=== PATIENT | male | born 1970 | race Caucasian/White ===

== ENCOUNTER 2021-07-10 20:42 | Emergency (ER) | payer MEDICARE, MEDICAID ==
[~2021-07-10] VITALS: Ht 185.4 cm; Wt 147.9 kg
[2021-07-10 20:42] VITALS: BP 150/88
== END 2021-07-11 00:13 | disposition left against medical advice (07) ==
LOC: ER 20:42
DX: H92.02 Otalgia, left ear (principal); Z53.21 Procedure and treatment not carried out due to patient leaving prior to being seen by health care provider

== ENCOUNTER → 2022-01-17 | Emergency (ER) | payer MEDICARE, MEDICAID ==
[~2022-01-17] VITALS: Ht 185.4 cm; Wt 145.0 kg
[~2022-01-17] MED LIST: HYDR1TAB97 PO; HYDROcodone-ACET 10/325MG TAB PO ONE; ONDANSETRON ODT 4 MG TAB PO ONE
[2022-01-17 23:18] LABS: Basophils # (auto) 0.1 10 ^3/uL (0-0.2); Basophils % (auto) 0.9 % (0.0-2.0); Eosinophils # (auto) 0.3 10 ^3/uL (0-0.8); Eosinophils % (auto) 2.9 % (0.0-7.0); Lymphocytes # (auto) 2.9 10 ^3/uL (0.4-5.4); Lymphocytes % (auto) 25.9 % (10.0-50.0); Mean Corpuscular Hemoglobin 31.5 pg (28.0-32.0); Mean Corpuscular Hgb Conc. 34.7 g/dL (32.0-36.0); Mean Corpuscular Volume 90.9 fL (80.0-100.0); Monocytes # (auto) 0.8 10 ^3/uL (0-1.3); Monocytes % (auto) 7.6 % (0.0-12.0); Neutrophils # (auto) 6.9 10 ^3/uL (1.6-8.6); Neutrophils % (auto) 62.7 % (37.0-80.0); Nucleated Red Blood Cells % 1.3 %; Red Blood Cells 5.39 10^6/uL (4.5-5.90); Red Cell Distribution Width 13.3 % (11.8-14.3); White Blood Cell 11.1 10^3/uL (4.4-10.8)
[2022-01-17 23:33] LABS: INR 1.03 (0.9-1.15); Partial Thromboplastin Time 28.5 sec (24.6-33.4)
[2022-01-17 23:38] LABS: Potassium 4.3 mmol/L (3.5-5.1)
[2022-01-17 23:40] LABS: Albumin 3.3 g/dL (3.4-5.0); BUN/Creatinine Ratio 15.9; Calcium 9.3 mg/dL (8.5-10.1)
[2022-01-17 23:44] LABS: Bilirubin, Total 0.6 mg/dL (0.2-1.0); Total Protein 8.1 g/dL (6.4-8.2)
[2022-01-18 03:50] VITALS: BP 138/72
== END | disposition home or self-care (01) ==
LOC: ER 21:05
DX: K57.90 Diverticulosis of intestine, part unspecified, without perforation or abscess without bleeding (principal); K40.90 Unilateral inguinal hernia, without obstruction or gangrene, not specified as recurrent; E11.9 Type 2 diabetes mellitus without complications; Z88.1 Allergy status to other antibiotic agents
CPT/HCPCS: 36415; 71045; 71250; 74176; 80053; 83690; 83880; 84484; 85025; 85610; 85730; 93005

== ENCOUNTER 2022-07-30 19:33 | Inpatient (IN) | payer MEDICARE, MEDICAID ==
[~2022-07-30] VITALS: Ht 188 cm; Wt 134.0 kg
[~2022-07-30 19:33] MED LIST changes: +DOCU100C10 PO; +EMPA1TAB3 PO; +ERGO1CAP12 PO; +GABA300C10 PO; -HYDROcodone-ACET 10/325MG TAB PO ONE; +METH500T22 PO; +METO-281 PO; -ONDANSETRON ODT 4 MG TAB PO ONE; +PANT40TA2 PO
[2022-07-30] MEDS ORDERED: PANTOPRAZOLE 40 MG/10 ML VIAL INJ IV ONE (20:30)
[2022-07-30] MEDS ORDERED: PROCHLORPERAZINE EDISYLATE 5 MG/ML 2ML VIAL IV ONE (20:30)
[2022-07-30] MEDS ORDERED: HYDROmorphone HCL 2 MG/ML VL/or syr IV ONE (20:30)
[2022-07-30] MEDS ORDERED: SODIUM CHLORIDE 0.9% 1,000 ML IVB ONE (20:30)
[2022-07-30 20:57] LABS: Urine Bacteria None Seen /hpf (None Seen)
[2022-07-30 21:04] LABS: Basophils # (auto) 0.3 10 ^3/uL (0-0.2); Basophils % (auto) 2.2 % (0.0-2.0); Eosinophils # (auto) 0.1 10 ^3/uL (0-0.8); Hematocrit 49.1 % (41.0-53.0); Hemoglobin 16.7 g/dL (13.5-17.5); Lymphocytes # (auto) 0.9 10 ^3/uL (0.4-5.4); Lymphocytes % (auto) 7.1 % (10.0-50.0); Mean Corpuscular Volume 88.3 fL (80.0-100.0); Monocytes # (auto) 0.2 10 ^3/uL (0-1.3); Monocytes % (auto) 1.9 % (0.0-12.0); Neutrophils # (auto) 10.7 10 ^3/uL (1.6-8.6); Neutrophils % (auto) 87.8 % (37.0-80.0); Nucleated Red Blood Cells % 1.9 %; Red Blood Cells 5.56 10^6/uL (4.5-5.90); Red Cell Distribution Width 13.4 % (11.8-14.3); White Blood Cell 12.2 10^3/uL (4.4-10.8)
[2022-07-30 21:20] LABS: INR 1.06 (0.9-1.15); Partial Thromboplastin Time 28.8 sec (24.6-33.4)
[2022-07-30 21:21] LABS: Urine Blood Negative /uL (Negative); Urine WBC 0-2 /hpf (0 - 3)
[2022-07-30 21:22] LABS: Urine Mucus FEW (None Seen)
[2022-07-30 21:24] LABS: Albumin 3.9 g/dL (3.4-5.0); Calcium 9.2 mg/dL (8.5-10.1); Potassium 3.6 mmol/L (3.5-5.1)
[2022-07-30 21:27] LABS: Bilirubin, Total 0.8 mg/dL (0.2-1.0); Total Protein 8.9 g/dL (6.4-8.2)
[2022-07-30] MEDS ORDERED: SODIUM CHLORIDE 0.9% 1,000 ML IV SCH (22:15)
[2022-07-30] MEDS ORDERED: cefTRIAXone 1GM/50ML D5W 50 ML IV ONE (22:15)
[2022-07-30] MEDS ORDERED: ACETAMINOPHEN 325 MG TAB PO PRN (22:15)
[2022-07-30] MEDS ORDERED: DOCUSATE SOD 100 MG CAP PO PRN (22:15)
[2022-07-30] MEDS ORDERED: DEXTROSE (50%) 50ML SYRG IV PRN (22:15)
[2022-07-30] MEDS ORDERED: hydrALAZINE HCL 20 MG/ML VL IV PRN (22:15)
[2022-07-30] MEDS ORDERED: ONDANSETRON HCL 4 MG/2 ML VIAL IV PRN ×2 (22:15→23:15)
[2022-07-30] MEDS ORDERED: NITROGLYCERIN 0.4 MG SL TAB SL PRN (23:15)
[2022-07-30] MEDS ORDERED: MORPHINE SULFATE INJ 2 MG/ml SYRG IV PRN (23:15)
[2022-07-31] MEDS: HYDROcodone-ACET 5/325MG TAB PO PRN ×3 (00:39→23:26)
[2022-07-31] MEDS: SODIUM CHLORIDE 0.9% 1,000 ML IV SCH ×4 (00:42→23:15)
[2022-07-31 04:55] LABS: Basophils # (auto) 0 10 ^3/uL (0-0.2); Basophils % (auto) 0.2 % (0.0-2.0); Eosinophils # (auto) 0 10 ^3/uL (0-0.8); Hematocrit 44.8 % (41.0-53.0); Hemoglobin 15.4 g/dL (13.5-17.5); Lymphocytes # (auto) 1.5 10 ^3/uL (0.4-5.4); Mean Corpuscular Hemoglobin 30.3 pg (28.0-32.0); Mean Corpuscular Hgb Conc. 34.4 g/dL (32.0-36.0); Mean Corpuscular Volume 88.2 fL (80.0-100.0); Monocytes # (auto) 0.6 10 ^3/uL (0-1.3); Monocytes % (auto) 4.6 % (0.0-12.0); Neutrophils # (auto) 10.4 10 ^3/uL (1.6-8.6); Neutrophils % (auto) 83.2 % (37.0-80.0); Nucleated Red Blood Cells % 0.5 %; Red Blood Cells 5.08 10^6/uL (4.5-5.90); Red Cell Distribution Width 13.3 % (11.8-14.3); White Blood Cell 12.6 10^3/uL (4.4-10.8)
[2022-07-31 04:59] LABS: Calcium 8.5 mg/dL (8.5-10.1); Potassium 3.9 mmol/L (3.5-5.1)
[2022-07-31 05:05] LABS: Albumin 3.3 g/dL (3.4-5.0); BUN/Creatinine Ratio 13.6 (10.0-20.0); Bilirubin, Total 0.5 mg/dL (0.2-1.0); Total Protein 7.8 g/dL (6.4-8.2)
[2022-07-31] MEDS: ACCU-CHEK COMFORT CURVE STRIP VI SCH ×4 (06:51→22:00)
[2022-07-31] MEDS: InsuLIN REG 1unit/0.01ml Soln (100units/ml) SC SCH ×3 (06:51→16:51)
[2022-07-31] MEDS ORDERED: ONDANSETRON HCL 4 MG/2 ML VIAL IV PRN (07:00)
[2022-07-31] MEDS: cefTRIAXone 1GM/50ML D5W 50 ML IV SCH (09:11)
[2022-07-31] MEDS: PANTOPRAZOLE 40 MG/10 ML VIAL INJ IV SCH (09:35)
[2022-07-31] MEDS: ENOXAPARIN SOD 40 MG/0.4 ML SYRINGE SC SCH (09:35)
[2022-07-31] MEDS: METOCLOPRAMIDE HCL 5MG/ml INJ 2ml VIAL IV SCH ×2 (12:12→18:13)
[2022-07-31] MEDS: MORPHINE SULFATE INJ 2 MG/ml SYRG IV PRN (15:55)
[2022-07-31] MEDS ORDERED: InsuLIN REG 1unit/0.01ml Soln (100units/ml) SC SCH (22:00)
[2022-08-01] MEDS: METOCLOPRAMIDE HCL 5MG/ml INJ 2ml VIAL IV SCH ×3 (01:36→12:00)
[2022-08-01 01:40] VITALS: BP 125/79
[2022-08-01] MEDS ORDERED: SENN17.23 PO (01:48)
[2022-08-01] MEDS: MORPHINE SULFATE INJ 2 MG/ml SYRG IV PRN (02:01)
[2022-08-01 04:48] VITALS: BP 122/72
[2022-08-01] MEDS: InsuLIN REG 1unit/0.01ml Soln (100units/ml) SC SCH ×2 (06:13→11:30)
[2022-08-01] MEDS: ACCU-CHEK COMFORT CURVE STRIP VI SCH ×2 (06:13→11:30)
[2022-08-01] MEDS: SODIUM CHLORIDE 0.9% 1,000 ML IV SCH (07:22)
[2022-08-01 08:00] VITALS: BP 120/75
[2022-08-01] MEDS: cefTRIAXone 1GM/50ML D5W 50 ML IV SCH (08:22)
[2022-08-01] MEDS: ENOXAPARIN SOD 40 MG/0.4 ML SYRINGE SC SCH (08:28)
[2022-08-01] MEDS: PANTOPRAZOLE 40 MG/10 ML VIAL INJ IV SCH (08:28)
[2022-08-01 09:00] VITALS: BP 120/75
[2022-08-01 12:07] VITALS: BP 120/75
[2022-08-01 13:00] VITALS: BP 116/69
== END 2022-08-01 14:00 | disposition home or self-care (01) | DRG 392 ==
LOC: ER 19:33 → TELE 23:24 → TELE-EAST 23:50 → TELE 07-31 23:45 → TELE-EAST 07-31 23:49
PROVIDERS: ADMIT Internal Medicine; ATTEND Internal Medicine
DX: R11.2 Nausea with vomiting, unspecified (principal); E87.1 Hypo-osmolality and hyponatremia; K57.32 Diverticulitis of large intestine without perforation or abscess without bleeding; K80.20 Calculus of gallbladder without cholecystitis without obstruction; E66.01 Morbid (severe) obesity due to excess calories; E11.65 Type 2 diabetes mellitus with hyperglycemia; F12.10 Cannabis abuse, uncomplicated; F41.9 Anxiety disorder, unspecified; K21.9 Gastro-esophageal reflux disease without esophagitis; Z68.37 Body mass index [BMI] 37.0-37.9, adult; Z80.3 Family history of malignant neoplasm of breast; Z79.899 Other long term (current) drug therapy; Z88.1 Allergy status to other antibiotic agents
CPT/HCPCS: 36415; 71045; 74176; 80053; 81001; 82962; 83036; 83690; 83880; 84484; 85025; 85610; 85730; 93005; 96374; 96375; C9113; G0378; J0696; J1815; J2405

== ENCOUNTER 2023-08-31 15:05 | Inpatient (IN) | payer MEDICARE, MEDICAID ==
[~2023-08-31] VITALS: Ht 185.4 cm; Wt 141.9 kg
[~2023-08-31 15:05] MED LIST changes: -DOCU100C10 PO; +GABA-1250 PO; -GABA300C10 PO; -METH500T22 PO; +SENN17.23 PO
[2023-08-31 15:55] VITALS: PULSE 82; RESP 13; O2SAT 96
[2023-08-31] MEDS: SODIUM CHLORIDE 0.9% 1,000 ML IV ONE (16:04)
[2023-08-31 16:50] LABS: Basophils # (auto) 0.1 10 ^3/uL (0-0.2); Basophils % (auto) 0.3 % (0.0-2.0); Eosinophils # (auto) 0 10 ^3/uL (0-0.8); Hemoglobin 19.7 g/dL (13.5-17.5); Monocytes # (auto) 0.4 10 ^3/uL (0-1.3); Neutrophils % (auto) 91.8 % (37.0-80.0)
[2023-08-31 16:52] LABS: Eosinophils % (auto) 0.1 % (0.0-7.0); Lymphocytes % (auto) 5.7 % (10.0-50.0); Mean Corpuscular Hgb Conc. 33.9 g/dL (32.0-36.0); Mean Corpuscular Volume 91.7 fL (80.0-100.0); Monocytes % (auto) 2.1 % (0.0-12.0); Neutrophils # (auto) 16.8 10 ^3/uL (1.6-8.6); Nucleated Red Blood Cells % 0.7 %; Red Blood Cells 6.35 10^6/uL (4.5-5.90); Red Cell Distribution Width 15.1 % (11.8-14.3); White Blood Cell 18.3 10^3/uL (4.4-10.8)
[2023-08-31 16:54] LABS: Hematocrit 58.2 % (41.0-53.0)
[2023-08-31] MEDS: PIPERACILLIN-TAZOB 3.375GM 100 ML IV ONE (17:00)
[2023-08-31] MEDS: ONDANSETRON HCL 4 MG/2 ML VIAL IV ONE ×2 (17:01→21:27)
[2023-08-31] MEDS: MORPHINE SULFATE 4 MG/ML SYR/VIAL IV ONE ×2 (17:02→21:40)
[2023-08-31 17:05] LABS: Anion Gap 10 (5-15); Carbon Dioxide 23 mmol/L (20-30); Chloride 104 mmol/L (98-107); Potassium 4.2 mmol/L (3.5-5.1); Sodium 137 mmol/L (136-145)
[2023-08-31 17:06] LABS: Calcium 10.9 mg/dL (8.5-10.1)
[2023-08-31 17:11] LABS: BUN/Creatinine Ratio 19.8 (10.0-20.0); Blood Urea Nitrogen 19 mg/dL (9-23); Glucose 270 mg/dL (74-106)
[2023-08-31 18:02] LABS: Lactic Acid w/Reflex 2.8 mmol/L (0.4-2.0)
[2023-08-31 19:30] VITALS: PULSE 90; RESP 18; O2SAT 95
[2023-08-31] MEDS ORDERED: ACETAMINOPHEN 325 MG TAB PO PRN (22:45)
[2023-08-31] MEDS ORDERED: NITROGLYCERIN 0.4 MG SL TAB SL PRN (22:45)
[2023-08-31] MEDS ORDERED: MORPHINE SULFATE INJ 2 MG/ml SYRG IV PRN (22:45)
[2023-08-31] MEDS: SODIUM CHLORIDE 0.9% 1,000 ML IV SCH (23:53)
[2023-09-01] VITALS (8 sets, daily range): BP systolic 113–154; BP diastolic 64–96; PULSE 66–100; RESP 17–20; TEMP 97.8–98.4; O2SAT 95–98
[2023-09-01] MEDS ORDERED: MAGN84TA4 PO (01:26)
[2023-09-01] MEDS ORDERED: ATOR20TA PO (01:26)
[2023-09-01] MEDS ORDERED: CYA100I IM (01:26)
[2023-09-01] MEDS: ONDANSETRON HCL 4 MG/2 ML VIAL IV PRN (02:34)
[2023-09-01] MEDS: MORPHINE SULFATE INJ 2 MG/ml SYRG IV PRN (02:34)
[2023-09-01 04:33] LABS: Basophils # (auto) 0.1 10 ^3/uL (0-0.2); Eosinophils # (auto) 0 10 ^3/uL (0-0.8); Lymphocytes # (auto) 1.4 10 ^3/uL (0.4-5.4); Mean Corpuscular Hgb Conc. 33.8 g/dL (32.0-36.0); Monocytes # (auto) 0.8 10 ^3/uL (0-1.3); Neutrophils # (auto) 14.8 10 ^3/uL (1.6-8.6); Nucleated Red Blood Cells % 0.1 %; Red Cell Distribution Width 15.3 % (11.8-14.3)
[2023-09-01 04:35] LABS: Basophils % (auto) 0.4 % (0.0-2.0); Hematocrit 53.1 % (41.0-53.0); Hemoglobin 17.9 g/dL (13.5-17.5); Lymphocytes % (auto) 8.4 % (10.0-50.0); Mean Corpuscular Volume 91.6 fL (80.0-100.0); Monocytes % (auto) 4.9 % (0.0-12.0); Neutrophils % (auto) 86.3 % (37.0-80.0); Red Blood Cells 5.79 10^6/uL (4.5-5.90); White Blood Cell 17.1 10^3/uL (4.4-10.8)
[2023-09-01 04:50] LABS: Alanine Aminotransferase 27 U/L (7-40); Albumin 4.4 g/dL (3.2-4.8); Alkaline Phosphatase 53 U/L (46-116); Anion Gap 11 (5-15); Aspartate Aminotransferase < 8 U/L (13-40); BUN/Creatinine Ratio 17.2 (10.0-20.0); Bilirubin, Total 0.6 mg/dL (0.2-1.0); Blood Urea Nitrogen 16 mg/dL (9-23); Calcium 9.7 mg/dL (8.7-10.4); Carbon Dioxide 23 mmol/L (20-30); Chloride 105 mmol/L (98-107); Glucose 213 mg/dL (74-106); Potassium 4.3 mmol/L (3.5-5.1); Sodium 139 mmol/L (136-145)
[2023-09-01] MEDS: ZINC SULFATE 220mg CAP or TAB PO SCH (09:27)
[2023-09-01] MEDS: ASCORBIC ACID 500 MG TAB PO SCH (09:27)
[2023-09-01] MEDS: MULTIPLE VITAMIN TAB PO SCH (09:27)
[2023-09-01 10:07] LABS: Hepatitis B Surface Antigen Negative (Negative)
[2023-09-01 10:28] LABS: Hepatitis C Antibody Negative (Negative)
[2023-09-01] MEDS: metroNIDAZOLE 500MG/100ML 100 ML IV SCH (14:00)
[2023-09-01 15:35] LABS: Lactic Acid w/Reflex 2.7 mmol/L (0.4-2.0)
[2023-09-01 19:32] LABS: Urine Bacteria None Seen /hpf (None Seen)
[2023-09-01 19:59] LABS: Urine Blood Negative /uL (Negative); Urine Clarity Clear (Clear); Urine Color Yellow (Yellow); Urine Mucus FEW (None Seen); Urine Protein, UAD TRACE (Negative); Urine Specific Gravity 1.043 (1.001-1.035); Urine Urobilinogen Normal (Negative); Urine WBC 5 /hpf (0 - 3); Urine pH 5.5 (5.0-9.0)
[2023-09-01 20:06] LABS: Amphetamine Screen, Urine Neg (NEGATIVE)
[2023-09-01 20:07] LABS: Barbiturate Scree,Urine Neg (NEGATIVE); Benzodiazephine Screen, Urine Neg (NEGATIVE); Cocaine Screen, Urine Neg (NEGATIVE); Opiate Scree,Urine Neg (NEGATIVE)
[2023-09-01 20:08] LABS: Cannabinoid Screen, Urine Pos (NEGATIVE); Phencyclidine Screen, Urine Neg (NEGATIVE)
[2023-09-01] MEDS: HYDROcodone-ACET 5/325MG TAB PO PRN (21:34)
[2023-09-02 05:00] VITALS: BP 118/79; PULSE 69; RESP 20; TEMP 97.5; O2SAT 97
[2023-09-02 08:00] VITALS: PULSE 66; O2SAT 97
[2023-09-02 09:00] VITALS: BP 120/78; PULSE 105; RESP 18; TEMP 98.9; O2SAT 95
[2023-09-02] MEDS: cefTRIAXone 1GM/50ML D5W 50 ML IV SCH (09:07)
[2023-09-02 13:00] VITALS: BP 127/74; PULSE 100; RESP 18; TEMP 98.2; O2SAT 94
[2023-09-02 15:24] LABS: Alanine Aminotransferase 23 U/L (7-40); Albumin 3.9 g/dL (3.2-4.8); Alkaline Phosphatase 48 U/L (46-116); Anion Gap 6 (5-15); Aspartate Aminotransferase 13 U/L (13-40); BUN/Creatinine Ratio 12.3 (10.0-20.0); Bilirubin, Total 0.5 mg/dL (0.2-1.0); Blood Urea Nitrogen 9 mg/dL (9-23); Carbon Dioxide 23 mmol/L (20-30); Chloride 104 mmol/L (98-107); Glucose 174 mg/dL (74-106); Potassium 4.1 mmol/L (3.5-5.1); Total Protein 7.1 g/dL (5.7-8.2)
[2023-09-02 15:29] LABS: Sodium 133 mmol/L (136-145)
[2023-09-02 15:41] LABS: Basophils # (auto) 0.1 10 ^3/uL (0-0.2); Basophils % (auto) 0.9 % (0.0-2.0); Eosinophils # (auto) 0.4 10 ^3/uL (0-0.8); Eosinophils % (auto) 2.8 % (0.0-7.0); Hematocrit 49.7 % (41.0-53.0); Hemoglobin 16.8 g/dL (13.5-17.5); Lymphocytes # (auto) 2.9 10 ^3/uL (0.4-5.4); Lymphocytes % (auto) 23.1 % (10.0-50.0); Mean Corpuscular Hemoglobin 31.2 pg (28.0-32.0); Mean Corpuscular Hgb Conc. 33.8 g/dL (32.0-36.0); Mean Corpuscular Volume 92.3 fL (80.0-100.0); Monocytes # (auto) 0.9 10 ^3/uL (0-1.3); Monocytes % (auto) 7.5 % (0.0-12.0); Neutrophils # (auto) 8.3 10 ^3/uL (1.6-8.6); Neutrophils % (auto) 65.7 % (37.0-80.0); Nucleated Red Blood Cells % 0.3 %; Red Blood Cells 5.38 10^6/uL (4.5-5.90); Red Cell Distribution Width 14.9 % (11.8-14.3); White Blood Cell 12.6 10^3/uL (4.4-10.8)
[2023-09-02 16:55] VITALS: BP 130/85; PULSE 62; RESP 18; TEMP 97.9; O2SAT 96
[2023-09-02 20:00] VITALS: PULSE 63; O2SAT 98
[2023-09-03 01:10] VITALS: BP 137/91; PULSE 62; RESP 19; TEMP 98.1; O2SAT 96
[2023-09-03 01:27] VITALS: BP 140/88; PULSE 54; RESP 20; TEMP 98; O2SAT 96
[2023-09-03 04:34] VITALS: BP 134/82; PULSE 58; RESP 16; TEMP 98; O2SAT 99
[2023-09-03 06:57] LABS: Basophils # (auto) 0.1 10 ^3/uL (0-0.2); Basophils % (auto) 0.5 % (0.0-2.0); Eosinophils # (auto) 0.2 10 ^3/uL (0-0.8); Eosinophils % (auto) 2.4 % (0.0-7.0); Hematocrit 49.3 % (41.0-53.0); Hemoglobin 17.1 g/dL (13.5-17.5); Lymphocytes # (auto) 2.7 10 ^3/uL (0.4-5.4); Lymphocytes % (auto) 26.9 % (10.0-50.0); Mean Corpuscular Hemoglobin 31.9 pg (28.0-32.0); Mean Corpuscular Hgb Conc. 34.7 g/dL (32.0-36.0); Mean Corpuscular Volume 92.2 fL (80.0-100.0); Monocytes # (auto) 0.9 10 ^3/uL (0-1.3); Monocytes % (auto) 9.3 % (0.0-12.0); Neutrophils # (auto) 6.1 10 ^3/uL (1.6-8.6); Neutrophils % (auto) 60.9 % (37.0-80.0); Nucleated Red Blood Cells % 0.2 %; Red Blood Cells 5.34 10^6/uL (4.5-5.90); Red Cell Distribution Width 14.8 % (11.8-14.3); White Blood Cell 10.1 10^3/uL (4.4-10.8)
[2023-09-03 07:38] LABS: Alanine Aminotransferase 21 U/L (7-40); Albumin 3.9 g/dL (3.2-4.8); Alkaline Phosphatase 48 U/L (46-116); Anion Gap 3 (5-15); Aspartate Aminotransferase 10 U/L (13-40); BUN/Creatinine Ratio 9.9 (10.0-20.0); Bilirubin, Total 0.8 mg/dL (0.2-1.0); Blood Urea Nitrogen 8 mg/dL (9-23); Calcium 9.4 mg/dL (8.7-10.4); Carbon Dioxide 30 mmol/L (20-30); Chloride 105 mmol/L (98-107); Glucose 114 mg/dL (74-106); Potassium 4.3 mmol/L (3.5-5.1); Sodium 138 mmol/L (136-145)
[2023-09-03 07:39] LABS: Total Protein 7.1 g/dL (5.7-8.2)
[2023-09-03 08:00] VITALS: PULSE 56
[2023-09-03] MEDS ORDERED: DEXTROSE (50%) 50ML SYRG IV PRN (09:00)
[2023-09-03 10:38] VITALS: BP 141/87; PULSE 59; RESP 17; TEMP 98.8; O2SAT 97
[2023-09-03] MEDS: ACCU-CHEK COMFORT CURVE STRIP VI SCH (11:30)
[2023-09-03] MEDS: InsuLIN REG 1unit/0.01ml Soln (100units/ml) SC SCH (11:30)
[2023-09-03] MEDS ORDERED: METO-281 PO (12:38)
[2023-09-03 13:17] VITALS: BP 149/90; PULSE 59; RESP 18; TEMP 97.6; O2SAT 97
== END 2023-09-03 15:45 | disposition home or self-care (01) | DRG 392 ==
LOC: ER 15:05 → TELE 22:34 → TELE-WESTW 09-01 00:40
PROVIDERS: ADMIT Internal Medicine; ATTEND Internal Medicine
DX: K52.9 Noninfective gastroenteritis and colitis, unspecified (principal); E87.20 Acidosis, unspecified; E87.1 Hypo-osmolality and hyponatremia; Z68.41 Body mass index [BMI] 40.0-44.9, adult; E66.01 Morbid (severe) obesity due to excess calories; E11.65 Type 2 diabetes mellitus with hyperglycemia; K21.9 Gastro-esophageal reflux disease without esophagitis; I10 Essential (primary) hypertension; F12.10 Cannabis abuse, uncomplicated; Z88.1 Allergy status to other antibiotic agents; Z87.891 Personal history of nicotine dependence; Z90.49 Acquired absence of other specified parts of digestive tract; Z79.4 Long term (current) use of insulin; Z79.899 Other long term (current) drug therapy
CPT/HCPCS: 36415; 71046; 74176; 80048; 80053; 80307; 81001; 82962; 83605; 84484; 85025; 86803; 87040; 87086; 87088; 87340; 96361; 96365; 96366; 96375; 96376; G0378; J1815; J2405; J2543

== ENCOUNTER 2024-05-03 10:09 | Inpatient (IN) | payer MEDICARE, MEDICAID ==
[~2024-05-03] VITALS: Ht 185.4 cm; Wt 137.8 kg
[2024-05-03 01:12] VITALS: BP 152/94; PULSE 88; RESP 17; TEMP 98.2; O2SAT 96
[~2024-05-03 10:09] MED LIST changes: +ATOR20TA PO; +CYA100I IM; +MAGN84TA4 PO
--- NOTE | 2024-05-03 10:23 | ED.PDOC ---
GI ASSESSMENT HPI Comments This is a 53-year-old male who comes in with chief complaint of abdominal pain as well as vomiting. The patient has a history of gastroparesis as well as marijuana use. The patient states that his pain is diffuse and an 8/10. EN route, the patient was an Accu-Chek of 225. He does have a history of diabetes. Upon arrival, the patient was still complaining of pain and feels very weak. Chief Complaint: Nausea/Vomiting Time Seen by MD: 10:19 Primary Care Provider: Unknown Reviewed Notes: Nurses Notes, Medications, Allergies (Allergies to Cipro) Allergies: Coded Allergies: Ciprofloxacin (Verified Allergy, Unknown, 07/10/21) Home Meds Active Scripts Metoclopramide Hcl (Reglan) 10 Mg Tab, 10 MG PO TID for 30 Days, #90 TAB Prov:[facility] 09/03/23 Pantoprazole Sodium Sesquihydr (Protonix) 40 Mg Tab, 40 MG PO DAILY for 30 Days, #30 TAB Prov:[facility]ACE [facility] 06/06/22 Metoclopramide Hcl (Reglan) 10 Mg Tab, 10 MG PO TID PRN for 30 Days, #90 TAB Prov:GRACE [facility]EV[facility] 06/06/22 Pantoprazole Sodium Sesquihydr (Protonix) 40 Mg Tab, 40 MG PO DAILY for 30 Days, #30 TAB Prov:[facility] 06/06/22 Hydrocodone-Acetaminophen (Hydrocodone/Acetaminophen 5-325 mg) 1 Tab Tab, 1 TAB PO QIDPRN, #20 TAB Prov:CHEIKH SCALES MD 01/17/22 Reported Medications Vitamin B12 (Vitamin B-12) 1,000 Mcg/1 Ml Ij, 1000 MCG IM, INJ 09/01/23 Magnesium Lactate (Mag-Tab Sr) 84 Mg Tab, 84 MG PO, TAB 09/01/23 Atorvastatin Calcium (Lipitor) 20 Mg Tab, 20 MG PO, TAB 09/01/23 Senna (Senokot Extra Strength) 17.2 Mg Tab, PO 08/01/22 Gabapentin (Gabapentin) 300 Mg Cap, 1 CAP PO DAILY 06/04/22 Empagliflozin (Jardiance) 25 Mg Tab, 0.5 TAB PO DAILY 06/04/22 Ergocalciferol (Vitamin D) 50,000 Unit Cap, 1 CAP PO QWEEKLY 06/04/22 Information Source: Patient Mode of Arrival: Wheelchair Timing: Hours Duration: Since onset Prehospital treatment: None Quality: Aching, Cramping Vomitus: Bilious Stool: Normal Severity: Severe Recent: None Recent Hx of: Diabetes, Other (History of marijuana use) Pain Location: Diffuse Modifying Factors: Nothing Associated sign and symptoms: Nausea, Vomiting, Abdominal Pain Past Medical History PAST MEDICAL HISTORY: CVA, DM, GERD, High Lipids, HTN Past Medical History (Other): Sleep apnea Surgical History: Unknown Family History Family History: Reviewed,noncontributory to illness Social History Smoker: Non-Smoker Alcohol: Denies ETOH Use Drugs: Marijuana Lives In: Home Constitutional: denies: chills, diaphoresis, fatigue, fever, malaise, sweats, weakness, others EENTM: denies: blurred vision, double vision, ear bleeding, ear discharge, ear drainage, ear pain, ear ringing, eye pain, eye redness, hearing loss, mouth pain, mouth swelling, nasal discharge, nose bleeding, nose congestion, nose pain, photophobia, tearing, throat pain, throat swelling, voice changes, others Respiratory: denies: cough, hemoptysis, orthopnea, SOB at rest, shortness of breath, SOB with excertion, stridor, wheezing, others Cardiovascular: denies: chest pain, dizzy spells, diaphoresis, Dyspnea on exertion, edema, irregular heart beat, left arm pain, lightheadedness, palpitations, PND, syncope, others Gastrointestinal: reports: abdominal pain, nausea, vomiting; denies: abdomen distended, blood streaked bowels, constipated, diarrhea, dysphagia, difficulty swallowing, hematemesis, melena, poor appetite, poor fluid intake, rectal bleeding, rectal pain, others Genitourinary: denies: burning, dysuria, flank pain, frequency, hematuria, incontinence, penile discharge, penile sore, pain, testicle pain, testicle swelling, urgency, others Neurological: denies: dizziness, fainting, headache, left sided numbness, left sided weakness, numbness, paresthesia, pre-existing deficit, right sided numbness, right sided weakness, seizure, speech problems, tingling, tremors, weakness, others Musculoskeletal: denies: back pain, gout, joint pain, joint swelling, muscle pain, muscle stiffness, neck pain, others Integumetry: denies: bruises, change in color, change in hair/nails, dryness, laceration, lesions, lumps, rash, wounds, others Allergic/Immunocompromised: denies: Difficulty Healing, Frequent Infections, Hives, Itching, others Hematologic/Lymphatic: denies: anemia, blood clots, easy bleeding, easy b ruising, swollen glands, others Endocrine: denies: excessive hunger, excessive sweating, excessive thirst, excessive urination, flushing, intolerance to cold, intolerance to heat, unexplained weight gain, unexplained weight loss, others Psychiatric: denies: anxiety, bipolar disorder, depression, hopeless, panic disorder, schizophrenia, sleepless, suicidal, others Physical Exam General Appearance: Moderate Distress HEENT: Normal ENT Inspection, Pharynx Normal, TMs Normal Neck: Full Range of Motion, Non-Tender, Normal, Normal Inspection Respiratory: Chest Non-Tender, Lungs Clear, No Accessory Muscle Use, No Respiratory Distress, Normal Breath Sounds Cardiovascular: No Edema, No JVD, No Murmur, No Gallop, Normal Peripheral Pulses, Regular Rate/Rhythm Breast Exam: Deferred Gastrointestinal: Diffuse, No Organomegaly, No Pulsatile Mass, Normal Bowel Sounds, Soft, Tenderness Genitalia: Deferred Pelvic: Deferred Rectal: Deferred Extremities: No calf tenderness, Normal capillary refill, Normal inspection, Normal range of motion, Non-tender, No pedal edema Musculoskeletal : Apperance: Normal Neurologic: Alert, 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 Was a procedure done?: No GI differential Dx Differential Diagnosis: Constipation, Diverticular disease, Gastritis/PUD, Gastroenteritis, Pancreatitis, UTI, Electrolyte Imbalance, Food Poisoning X-Ray, Labs, Meds, VS Vital Signs Date Time Temp Pulse Resp B/P (MAP) Pulse Ox O2 Delivery O2 Flow Rate FiO2 05/03/24 12:34 76 15 159/101 05/03/24 11:18 88 16 158/91 05/03/24 11:00 Nasal Cannula* 3 32 05/03/24 10:21 97.4 83 20 147/95 (112) 93 Lab Test 05/03/24 11:36 05/03/24 10:18 Range/Units White Blood Count 15.2 H 4.4-10.8 10^3/uL Red Blood Count 5.85 4.5-5.90 10^6/uL Hemoglobin 18.4 H 13.5-17.5 g/dL Hematocrit 54.4 H 41.0-53.0 % Mean Corpuscular Volume 93.0 80.0-100.0 fL Mean Corpuscular Hemoglobin 31.4 28.0-32.0 pg Mean Corpuscular Hemoglobin Concent 33.8 32.0-36.0 g/dL Red Cell Distribution Width 13.6 11.8-14.3 % Platelet Count 252 140-450 10^3/uL Mean Platelet Volume 10.1 6.9-10.8 fL Neutrophils (%) (Auto) 88.3 H 37.0-80.0 % Lymphocytes (%) (Auto) 8.5 L 10.0-50.0 % Monocytes (%) (Auto) 2.8 0.0-12.0 % Eosinophils (%) (Auto) 0.1 0.0-7.0 % Basophils (%) (Auto) 0.3 0.0-2.0 % Neutrophils # (Auto) 13.4 H 1.6-8.6 10 ^3/uL Lymphocytes # (Auto) 1.3 0.4-5.4 10 ^3/uL Monocytes # (Auto) 0.4 0-1.3 10 ^3/uL Eosinophils # (Auto) 0 0-0.8 10 ^3/uL Basophils # (Auto) 0 0-0.2 10 ^3/uL Nucleated Red Blood Cells 0.4 % Sodium Level 139 136-145 mmol/L Potassium Level 4.0 3.5-5.1 mmol/L Chloride Level 106 98-107 mmol/L Carbon Dioxide Level 16 L 20-31 mmol/L Anion Gap 17 H 5-15 Blood Urea Nitrogen 12 9-23 mg/dL Creatinine 0.84 0.700-1.30 mg/dL Glomerular Filtration Rate Calc 104 >90 mL/min BUN/Creatinine Ratio 14.3 10.0-20.0 Serum Glucose 209 H 74-106 mg/dL Calcium Level 10.7 H 8.7-10.4 mg/dL Total Bilirubin 1.1 H 0.2-1.0 mg/dL Aspartate Amino Transferase (AST) 20 13-40 U/L Alanine Aminotransferase (ALT) 38 7-40 U/L Alkaline Phosphatase 57 46-116 U/L Total Protein 8.6 H 5.7-8.2 g/dL Albumin 5.2 H 3.2-4.8 g/dL Lipase 45 12-53 U/L Beta-Hydroxybutyric Acid 3.356 H < 0.4 mmol/L POC Glucose 235 H 70-106 mg/dl Current Medications Medications (Trade) Dose Ordered Sig/Tang Route Start Time Stop Time Status Last Admin Sodium Chloride 1,000 ml @ 1,000 mls/hr Q1H ONCE IVB 05/03/24 10:30 05/03/24 11:29 DC 05/03/24 10:30 Prochlorperazine Edisylate (Compazine Inj) 10 mg ONCE ONCE IV 05/03/24 10:30 05/03/24 10:31 DC 05/03/24 11:18 Pantoprazole Sodium (Protonix) 40 mg ONCE ONCE IV 05/03/24 10:30 05/03/24 10:31 DC 05/03/24 11:17 Morphine Sulfate 4 mg ONCE ONCE IV 05/03/24 10:30 05/03/24 10:31 DC 05/03/24 11:18 Images Reviewed?: Images reviewed and evaluated by me Time of 1ST Reevaluation: 10:27 Reevaluation 1ST: Unchanged Patient Education/Counseling: Diagnosis, Treatment, Prognosis Family Education/Counseling: No Family Present Departure 1 Departure Time of Disposition: 13:25 Impression: Primary Impression: Cannabis hyperemesis syndrome concurrent with and due to cannabis abuse Additional Impressions: Increased anion gap metabolic acidosis Dehydration Diabetes type 1, uncontrolled Qualified Codes: E10.65 - Type 1 diabetes mellitus with hyperglycemia Disposition: ADMITTED INPATIENT Admit to: Tele Condition: Fair Critical Care Note Critical Care Time?: No Stability Stability form required: Yes Unstable for transfer: Telemetry monitoring (Telemetry monitoring required), ED Physician Assesment (Clinical assesment) Heart Score Heart Score: Heart Score Response (Comments) Value History N/A 0 EKG N/A 0 Age N/A 0 Risk Factors N/A 0 Troponin N/A 0 Total 0 ROBSON ALMONTE MD May 03, 2024 10:23
[2024-05-03] MEDS: SODIUM CHLORIDE 0.9% 1,000 ML IVB ONE (10:30)
--- NOTE | 2024-05-03 11:13 | DVH ---
CT ABDOMEN AND PELVIS WITHOUT CONTRAST CLINICAL HISTORY: PAIN TECHNIQUE: Multiple contiguous axial images of the abdomen and pelvis without intravenous contrast. The images were reformatted degenerate coronal and sagittal reconstructions. All CT scans at this medical facility are performed using dose modulation techniques as appropriate t o a performed exam including the following:Automated exposure control was utilized; adjustment of the MA and/or KV according to patient size; and use of iterative reconstruction technique. Radiation Dose Information: CT Dose: CTDI volume is 27.64 mGy. Dose-length product is 1630.32 mGy*cm Comparison: CT CT AB PEL WO CON-NO ORAL OR IV on DOS: 08/31/23, CT CT AB PEL WO CON-NO ORAL OR IV on D OS: 07/30/22 FINDINGS: Evaluation of the abdomen and pelvis is limited without intravenous contrast. There is a tiny calcified gallstone in the gallbladder. The liver, pancreas, kidneys, adrenal glan ds, and spleen appear within normal limits. There is no gross evidence of abdominal lymphadenopathy. There is no free fluid or free air. The stomach grossly appears unremarkable. The small and large bowel loops demonstrate normal caliber . There are anastomotic sutures in the sigmoid colon. There are scattered diverticula in the distal c olon without evidence of acute diverticulitis. A normal-appearing appendix is seen in the right lower quadrant abdomen. The abdominal aorta and IVC appear within normal limits. The bladder appears unremarkable for the degree of distention. Pelvic organ appears within normal mckee its. There is no gross evidence of a pelvic mass. There is no free fluid collection. Lung bases are clear. There is no acute osseous abnormality. IMPRESSION: 1. There is no acute process in the abdomen and pelvis. 2. Tiny calcified gallstone in the gallbladder. 3. Postsurgical changes in the sigmoid colon. 4. Distal colon diverticulosis. HS:Y
[2024-05-03] MEDS: PANTOPRAZOLE 40 MG/10 ML VIAL INJ IV ONE (11:17)
[2024-05-03] MEDS: MORPHINE SULFATE 4 MG/ML SYR/VIAL IV ONE (11:18)
[2024-05-03] MEDS: PROCHLORPERAZINE EDISYLATE 5 MG/ML 2ML VIAL IV ONE (11:18)
[2024-05-03 12:28] LABS: Basophils # (auto) 0 10 ^3/uL (0-0.2); Basophils % (auto) 0.3 % (0.0-2.0); Eosinophils # (auto) 0 10 ^3/uL (0-0.8); Eosinophils % (auto) 0.1 % (0.0-7.0); Hematocrit 54.4 % (41.0-53.0); Hemoglobin 18.4 g/dL (13.5-17.5); Lymphocytes # (auto) 1.3 10 ^3/uL (0.4-5.4); Lymphocytes % (auto) 8.5 % (10.0-50.0); Mean Corpuscular Hemoglobin 31.4 pg (28.0-32.0); Mean Corpuscular Hgb Conc. 33.8 g/dL (32.0-36.0); Monocytes # (auto) 0.4 10 ^3/uL (0-1.3); Monocytes % (auto) 2.8 % (0.0-12.0); Neutrophils # (auto) 13.4 10 ^3/uL (1.6-8.6); Neutrophils % (auto) 88.3 % (37.0-80.0); Nucleated Red Blood Cells % 0.4 %; Platelet Count (auto) 252 10^3/uL (140-450); Red Blood Cells 5.85 10^6/uL (4.5-5.90); Red Cell Distribution Width 13.6 % (11.8-14.3); White Blood Cell 15.2 10^3/uL (4.4-10.8)
[2024-05-03 12:40] LABS: Alanine Aminotransferase 38 U/L (7-40); Alkaline Phosphatase 57 U/L (46-116); Anion Gap 17 (5-15); BUN/Creatinine Ratio 14.3 (10.0-20.0); Blood Urea Nitrogen 12 mg/dL (9-23); Chloride 106 mmol/L (98-107); Lipase 45 U/L (12-53); Sodium 139 mmol/L (136-145)
[2024-05-03 12:41] LABS: Aspartate Aminotransferase 20 U/L (13-40); Bilirubin, Total 1.1 mg/dL (0.2-1.0)
[2024-05-03 12:42] LABS: Albumin 5.2 g/dL (3.2-4.8); Calcium 10.7 mg/dL (8.7-10.4); Carbon Dioxide 16 mmol/L (20-31); Glucose 209 mg/dL (74-106); Total Protein 8.6 g/dL (5.7-8.2)
--- NOTE | 2024-05-03 13:37 | DVHHP2 ---
History of Present Illness Home Meds Active Scripts Metoclopramide Hcl (Reglan) 10 Mg Tab, 10 MG PO TID for 30 Days, #90 TAB Prov:[facility] 09/03/23 Pantoprazole Sodium Sesquihydr (Protonix) 40 Mg Tab, 40 MG PO DAILY for 30 Days, #30 TAB Prov:TAWANA VERNON [facility] 06/06/22 Metoclopramide Hcl (Reglan) 10 Mg Tab, 10 MG PO TID PRN for 30 Days, #90 TAB Prov:GRACE STEVENSON [facility] 06/06/22 Pantoprazole Sodium Sesquihydr (Protonix) 40 Mg Tab, 40 MG PO DAILY for 30 Days, #30 TAB Prov:TAWANA VERNON EDDIE [facility] 06/06/22 Hydrocodone-Acetaminophen (Hydrocodone/Acetaminophen 5-325 mg) 1 Tab Tab, 1 TAB PO QIDPRN, #20 TAB Prov:CHEIKH SCALES MD 01/17/22 Reported Medications Vitamin B12 (Vitamin B-12) 1,000 Mcg/1 Ml Ij, 1000 MCG IM, INJ 09/01/23 Magnesium Lactate (Mag-Tab Sr) 84 Mg Tab, 84 MG PO, TAB 09/01/23 Atorvastatin Calcium (Lipitor) 20 Mg Tab, 20 MG PO, TAB 09/01/23 Senna (Senokot Extra Strength) 17.2 Mg Tab, PO 08/01/22 Gabapentin (Gabapentin) 300 Mg Cap, 1 CAP PO DAILY 06/04/22 Empagliflozin (Jardiance) 25 Mg Tab, 0.5 TAB PO DAILY 06/04/22 Ergocalciferol (Vitamin D) 50,000 Unit Cap, 1 CAP PO QWEEKLY 06/04/22 Past Medical History Patient Family History: Diabetes mellitus G8 MOTHER FH: breast cancer Hidradenitis suppurativa G8 MOTHER H&P Exam Vital Signs Vital Signs Date Time Temp Pulse Resp B/P (MAP) Pulse Ox O2 Delivery O2 Flow Rate FiO2 05/03/24 12:34 76 15 159/101 05/03/24 12:14 94 05/03/24 11:00 Nasal Cannula* 3 32 05/03/24 10:21 97.4 Labs/Xrays Labs Test 05/03/24 11:36 05/03/24 10:18 Range/Units White Blood Count 15.2 H 4.4-10.8 10^3/uL Red Blood Count 5.85 4.5-5.90 10^6/uL Hemoglobin 18.4 H 13.5-17.5 g/dL Hematocrit 54.4 H 41.0-53.0 % Mean Corpuscular Volume 93.0 80.0-100.0 fL Mean Corpuscular Hemoglobin 31.4 28.0-32.0 pg Mean Corpuscular Hemoglobin Concent 33.8 32.0-36.0 g/dL Red Cell Distribution Width 13.6 11.8-14.3 % Platelet Count 252 140-450 10^3/uL Mean Platelet Volume 10.1 6.9-10.8 fL Neutrophils (%) (Auto) 88.3 H 37.0-80.0 % Lymphocytes (%) (Auto) 8.5 L 10.0-50.0 % Monocytes (%) (Auto) 2.8 0.0-12.0 % Eosinophils (%) (Auto) 0.1 0.0-7.0 % Basophils (%) (Auto) 0.3 0.0-2.0 % Neutrophils # (Auto) 13.4 H 1.6-8.6 10 ^3/uL Lymphocytes # (Auto) 1.3 0.4-5.4 10 ^3/uL Monocytes # (Auto) 0.4 0-1.3 10 ^3/uL Eosinophils # (Auto) 0 0-0.8 10 ^3/uL Basophils # (Auto) 0 0-0.2 10 ^3/uL Nucleated Red Blood Cells 0.4 % Sodium Level 139 136-145 mmol/L Potassium Level 4.0 3.5-5.1 mmol/L Chloride Level 106 98-107 mmol/L Carbon Dioxide Level 16 L 20-31 mmol/L Anion Gap 17 H 5-15 Blood Urea Nitrogen 12 9-23 mg/dL Creatinine 0.84 0.700-1.30 mg/dL Glomerular Filtration Rate Calc 104 >90 mL/min BUN/Creatinine Ratio 14.3 10.0-20.0 Serum Glucose 209 H 74-106 mg/dL Calcium Level 10.7 H 8.7-10.4 mg/dL Total Bilirubin 1.1 H 0.2-1.0 mg/dL Aspartate Amino Transferase (AST) 20 13-40 U/L Alanine Aminotransferase (ALT) 38 7-40 U/L Alkaline Phosphatase 57 46-116 U/L Total Protein 8.6 H 5.7-8.2 g/dL Albumin 5.2 H 3.2-4.8 g/dL Lipase 45 12-53 U/L Beta-Hydroxybutyric Acid 3.356 H < 0.4 mmol/L POC Glucose 235 H 70-106 mg/dl LISA AUGUSTINE NP May 03, 2024 13:37
[2024-05-03] MEDS ORDERED: INSULIN LANTUS (GLARGINE) 1 /0.01ml (100units/ml) SC ONE (13:45)
[2024-05-03] MEDS ORDERED: POTASSIUM CHL 20MEQ/100ML 200 ML IV PRN (13:45)
[2024-05-03] MEDS ORDERED: INSULIN DRIP 100 UNIT/100ML 100 ML IV SCH (13:45)
[2024-05-03] MEDS ORDERED: MAGNESIUM SULFATE 1GM/100ML 200 ML IV ONE (13:45)
[2024-05-03] MEDS ORDERED: POTASSIUM CHL 20MEQ/100ML 100 ML IV PRN (13:45)
[2024-05-03] MEDS ORDERED: DEXTROSE (50%) 50ML SYRG IV PRN ×2 (13:45→15:30)
[2024-05-03 14:01] LABS: Basophils # (auto) 0 10 ^3/uL (0-0.2); Eosinophils # (auto) 0 10 ^3/uL (0-0.8); Hemoglobin 18.3 g/dL (13.5-17.5); Monocytes # (auto) 0.3 10 ^3/uL (0-1.3); Monocytes % (auto) 1.7 % (0.0-12.0); Nucleated Red Blood Cells % 0.3 %
[2024-05-03 14:03] LABS: Basophils % (auto) 0.1 % (0.0-2.0); Hematocrit 53.9 % (41.0-53.0); Lymphocytes # (auto) 0.8 10 ^3/uL (0.4-5.4); Lymphocytes % (auto) 5.2 % (10.0-50.0); Mean Corpuscular Hemoglobin 31.7 pg (28.0-32.0); Mean Corpuscular Volume 93.1 fL (80.0-100.0); Neutrophils # (auto) 14.2 10 ^3/uL (1.6-8.6); Platelet Count (auto) 219 10^3/uL (140-450); Red Blood Cells 5.79 10^6/uL (4.5-5.90); Red Cell Distribution Width 13.6 % (11.8-14.3); White Blood Cell 15.2 10^3/uL (4.4-10.8)
[2024-05-03 14:16] LABS: Sodium 141 mmol/L (136-145)
[2024-05-03 14:17] LABS: Anion Gap 15 (5-15)
[2024-05-03 14:20] LABS: Carbon Dioxide 19 mmol/L (20-31); Chloride 107 mmol/L (98-107)
[2024-05-03 14:23] LABS: BUN/Creatinine Ratio 14.6 (10.0-20.0); Blood Urea Nitrogen 12 mg/dL (9-23); Magnesium 2.2 mg/dL (1.6-2.6)
[2024-05-03 14:27] LABS: Glucose 181 mg/dL (74-106)
[2024-05-03 14:33] LABS: Urine Bacteria None Seen /hpf (None Seen)
[2024-05-03 14:59] LABS: Urine Blood Negative /uL (Negative); Urine Clarity Clear (Clear); Urine Color Light-Yellow (Yellow); Urine Protein, UAD TRACE (Negative); Urine Squamous Epithelial Cell FEW /hpf (<5); Urine Urobilinogen Normal (Negative); Urine WBC < 1 /HPF (0-3); Urine pH 5.5 (5.0-9.0)
[2024-05-03] MEDS ORDERED: ACCU-CHEK COMFORT CURVE STRIP VI SCH (15:00)
[2024-05-03] MEDS: METOCLOPRAMIDE HCL 5MG/ml INJ 2ml VIAL IV SCH (15:06)
[2024-05-03] MEDS: MORPHINE SULFATE INJ 2 MG/ml SYRG IV PRN (15:06)
[2024-05-03 15:08] LABS: Opiate Scree,Urine Neg (NEGATIVE)
[2024-05-03 15:09] LABS: Amphetamine Screen, Urine Neg (NEGATIVE); Barbiturate Scree,Urine Neg (NEGATIVE); Benzodiazephine Screen, Urine Neg (NEGATIVE); Cannabinoid Screen, Urine Pos (NEGATIVE); Cocaine Screen, Urine Neg (NEGATIVE); Phencyclidine Screen, Urine Neg (NEGATIVE)
[2024-05-03] MEDS: SODIUM CHLORIDE 0.9% 1,000 ML IV ONE (15:30)
[2024-05-03] MEDS ORDERED: MORPHINE SULFATE INJ 2 MG/ml SYRG IV PRN (15:30)
[2024-05-03] MEDS ORDERED: NITROGLYCERIN 0.4 MG SL TAB SL PRN (15:30)
[2024-05-03] MEDS: INSULIN LANTUS (GLARGINE) 1 /0.01ml (100units/ml) SC SCH (16:29)
[2024-05-03] MEDS: ACCU-CHEK COMFORT CURVE STRIP VI SCH (17:00)
[2024-05-03] MEDS ORDERED: SODIUM CHLORIDE 0.9% 1,000 ML IV SCH ×2 (17:45→19:45)
[2024-05-03] MEDS: InsuLIN REG 1unit/0.01ml Soln (100units/ml) SC SCH ×2 (17:47→23:18)
[2024-05-03] MEDS: hydrALAZINE HCL 20 MG/ML VL IV PRN (17:48)
[2024-05-03] MEDS: ONDANSETRON HCL 4 MG/2 ML VIAL IV PRN (21:07)
[2024-05-04] VITALS (10 sets, daily range): BP systolic 139–161; BP diastolic 85–100; PULSE 78–97; RESP 16–20; TEMP 97.6–98.6; O2SAT 95–99
[2024-05-04 09:50] LABS: Alanine Aminotransferase 29 U/L (7-40); Albumin 4.7 g/dL (3.2-4.8); Alkaline Phosphatase 51 U/L (46-116); Anion Gap 12 (5-15); BUN/Creatinine Ratio 18.6 (10.0-20.0); Bilirubin, Total 0.7 mg/dL (0.2-1.0); Blood Urea Nitrogen 18 mg/dL (9-23); Calcium 9.9 mg/dL (8.7-10.4); Carbon Dioxide 23 mmol/L (20-31); Chloride 98 mmol/L (98-107); Magnesium 2.2 mg/dL (1.6-2.6); Potassium 4.1 mmol/L (3.5-5.1)
[2024-05-04 09:51] LABS: Total Protein 7.8 g/dL (5.7-8.2)
[2024-05-04] MEDS ORDERED: INSULIN LANTUS (GLARGINE) 1 /0.01ml (100units/ml) SC SCH (10:00)
[2024-05-04 10:25] LABS: Aspartate Aminotransferase 12 U/L (13-40); Glucose 210 mg/dL (74-106); Sodium 133 mmol/L (136-145)
--- NOTE | 2024-05-04 11:30 | DVH ---
EXAM: XY CHEST XRAY 1 VIEW Indication: sob Technique: Single frontal view of the chest was obtained Comparison: XY CHEST PORTABLE on DOS: 07/30/22, XY CHEST PORTABLE on DOS: 06/03/22, CHEST PORTABLE on D OS: 01/17/22, EKG on DOS: 01/17/22, CXRP on DOS: 01/17/22 FINDINGS: Lines and Tubes: None Lungs: No focal consolidation. Pleura: No effusion. No pneumothorax. Cardiomediastinal contours: Unremarkable Bones: No acute osseous abnormality. IMPRESSION: No acute cardiopulmonary disease.
[2024-05-04] MEDS: SODIUM CHLORIDE 0.9% 1,000 ML IV SCH (12:59)
[2024-05-04] MEDS: metroNIDAZOLE 500MG/100ML 100 ML IV SCH (13:02)
--- NOTE | 2024-05-04 13:19 | DVH ---
INDICATION: Abdominal pain R.O CHOLECYSTITIS TECHNIQUE: Multiple real-time sonographic images were obtained of the right upper quadrant. COMPARISON: None FINDINGS: The liver homogenous demonstrates increased echotexture without focal mass lesions. The li andrea measures 15 cm. There is no intrahepatic or extrahepatic ductal dilatation. The common duct is not well visualized due to obscuration from bowel gas. There is a gallstone. The gallbladder wall measures 2 mm and is within normal limits. The right kidney measures 13 cm. The right kidney is normal in contour, size, and shape. The echog enicity is normal. There is no hydronephrosis. The pancreas is not well visualized due to overlying bowel gas. IMPRESSION: Cholelithiasis without sonographic evidence of acute cholecystitis. Hepatic steatosis.
[2024-05-04 13:57] LABS: Basophils # (auto) 0 10 ^3/uL (0-0.2); Basophils % (auto) 0.1 % (0.0-2.0); Eosinophils # (auto) 0 10 ^3/uL (0-0.8); Eosinophils % (auto) 0.1 % (0.0-7.0); Hematocrit 51.2 % (41.0-53.0); Hemoglobin 17.3 g/dL (13.5-17.5); Lymphocytes # (auto) 2.2 10 ^3/uL (0.4-5.4); Lymphocytes % (auto) 10.7 % (10.0-50.0); Mean Corpuscular Hemoglobin 31.4 pg (28.0-32.0); Mean Corpuscular Hgb Conc. 33.8 g/dL (32.0-36.0); Monocytes # (auto) 1.4 10 ^3/uL (0-1.3); Neutrophils # (auto) 16.5 10 ^3/uL (1.6-8.6); Neutrophils % (auto) 82.1 % (37.0-80.0); Nucleated Red Blood Cells % 0.3 %; Platelet Count (auto) 268 10^3/uL (140-450); Red Blood Cells 5.51 10^6/uL (4.5-5.90); Red Cell Distribution Width 13.7 % (11.8-14.3); White Blood Cell 20.2 10^3/uL (4.4-10.8)
[2024-05-04 14:13] LABS: Alanine Aminotransferase 26 U/L (7-40); Albumin 4.6 g/dL (3.2-4.8); Alkaline Phosphatase 51 U/L (46-116); Anion Gap 12 (5-15); BUN/Creatinine Ratio 16.1 (10.0-20.0); Bilirubin, Total 0.7 mg/dL (0.2-1.0); Blood Urea Nitrogen 15 mg/dL (9-23); Calcium 9.9 mg/dL (8.7-10.4); Carbon Dioxide 22 mmol/L (20-31); Chloride 98 mmol/L (98-107); Potassium 3.8 mmol/L (3.5-5.1); Total Protein 7.7 g/dL (5.7-8.2)
[2024-05-04 14:20] LABS: Aspartate Aminotransferase 12 U/L (13-40); Glucose 200 mg/dL (74-106); Sodium 132 mmol/L (136-145)
--- NOTE | 2024-05-04 14:44 | DVHCONRES ---
Date Seen: May 04, 2024 Resident Creating Document: KIP ADAM RESIDENT Referring Physician Jacob Vernon Reason for Consultation Abdominal pain History of Present Illness Patient is 53-year-old male with past medical history of diabetes mellitus, hidradenitis suppurativa, morbid obesity, sleep apnea, anxiety, arthritis, carpal tunnel syndrome who came to the hospital with a chief complaint of epigastric pain, nausea and vomiting for the past two or three days. Nausea and vomiting intractable, bilious, not associated with blood. As per patient he started having similar kind of issues for more than five years, it exacerbated with initially started Ozempic, has been mildly controlled with one jar for last one year. Patient also in and out her the hospital for hand arthritis suppurativa management with multiple surgeries and antibiotic use, denying any use of antibiotic in last seven days. Patient also denied taking any food from outside as well. Patient had endoscopy and colonoscopy done in 2022 in [facility] which was unremarkable as per patient, [facility] and [facility]oscopy three or four years ago which was also unremarkable. Patient mildly complaining of semisolid four or five movements yesterday however it is regular today. Patient denying any other symptoms including fever, chills, any other symptoms at this point. GI has been consulted for abdominal pain Past medical history: Diabetes mellitus type 2 on Rohit and osmanro, diabetes mellitus, hidradenitis suppurativa, morbid obesity, sleep apnea, anxiety, arthritis, carpal tunnel syndrome Past surgical history: Multiple surgeries for subcutaneous abscess associated with hidradenitis accreta. Endoscopy and colonoscopy in 2022 in [facility]. As per patient which was unremarkable Endoscopy and [facility]. As per patient which was also unremarkable. Allergy: Ciprofloxacin. Family History: Diabetes mellitus G8 MOTHER FH: breast cancer Hidradenitis suppurativa G8 MOTHER Allergies: Coded Allergies: Ciprofloxacin (Verified Allergy, Unknown, 07/10/21) Home Meds Active Scripts Metoclopramide Hcl (Reglan) 10 Mg Tab, 10 MG PO TID for 30 Days, #90 TAB Prov:GRACE STEVENSONP 09/03/23 Pantoprazole Sodium Sesquihydr (Protonix) 40 Mg Tab, 40 MG PO DAILY for 30 Days, #30 TAB Prov:GRACE STEVENSONP 06/06/22 Metoclopramide Hcl (Reglan) 10 Mg Tab, 10 MG PO TID PRN for 30 Days, #90 TAB Prov:JACOB VERNON EDDIE EGG CASER 06/06/22 Pantoprazole Sodium Sesquihydr (Protonix) 40 Mg Tab, 40 MG PO DAILY for 30 Days, #30 TAB Prov:JACOB JANEENKYLIEGRACE EGG CASER 06/06/22 Hydrocodone-Acetaminophen (Hydrocodone/Acetaminophen 5-325 mg) 1 Tab Tab, 1 TAB PO QIDPRN, #20 TAB Prov:CHEIKH SCALES MD 01/17/22 Reported Medications Vitamin B12 (Vitamin B-12) 1,000 Mcg/1 Ml Ij, 1000 MCG IM, INJ 09/01/23 Magnesium Lactate (Mag-Tab Sr) 84 Mg Tab, 84 MG PO, TAB 09/01/23 Atorvastatin Calcium (Lipitor) 20 Mg Tab, 20 MG PO, TAB 09/01/23 Senna (Senokot Extra Strength) 17.2 Mg Tab, PO 08/01/22 Gabapentin (Gabapentin) 300 Mg Cap, 1 CAP PO DAILY 06/04/22 Empagliflozin (Jardiance) 25 Mg Tab, 0.5 TAB PO DAILY 06/04/22 Ergocalciferol (Vitamin D) 50,000 Unit Cap, 1 CAP PO QWEEKLY 06/04/22 Current Medications Current Medications Medications (Trade) Dose Ordered Sig/Atng Route PRN Reason Start Time Stop Time Status Last Admin Sodium Chloride 1,000 ml @ 250 mls/hr Q4H IV 05/03/24 17:45 05/03/24 15:43 DC Sodium Chloride 1,000 ml @ 150 mls/hr Q6H40M IV 05/03/24 19:45 05/03/24 15:43 DC Diagnostic Test (Pha) (Accu-Chek Comfort Curve T) 1 strip Q90MIN 05/03/24 15:00 05/03/24 15:43 DC Insulin Glargine (Lantus) 15 units DAILY SC 05/04/24 10:00 05/03/24 15:43 DC Insulin Glargine (Lantus) 15 units DAILY SC 05/03/24 15:30 05/04/24 10:00 Diagnostic Test (Pha) (Accu-Chek Comfort Curve T) 1 strip ACHS 05/03/24 17:00 05/04/24 10:57 Insulin Human Regular (InsuLIN R) HS SC 05/03/24 22:00 05/03/24 23:18 Insulin Human Regular (InsuLIN R) AC SC 05/03/24 17:00 05/04/24 10:57 Dextrose 50 ml UD PRN IV Blood Sugar LESS THAN 60 05/03/24 15:30 Nitroglycerin (Ntrostat Sublingual) 0.4 mg Q5MINP PRN SL FOR CHEST PAIN 05/03/24 15:30 Morphine Sulfate 2 mg Q30M PRN IV FOR CHEST PAIN 05/03/24 15:30 Sodium Chloride 1,000 ml @ 100 mls/hr Q10H IV 05/04/24 12:00 05/04/24 12:59 Metronidazole 100 ml @ 100 mls/hr Q8HR IV 05/04/24 14:00 05/04/24 13:02 Ceftriaxone Sodium 50 ml @ 100 mls/hr DAILY@09 IV 05/05/24 09:00 Hydromorphone HCl (Dilaudid Innjection) 0.5 mg Q4HPRN PRN IV SEVERE PAIN (7-10 PAIN SCALE) 05/04/24 12:00 Review of Systems Complaining of intractable nausea and vomiting with epigastric abdominal pain. Denying any other symptoms. Vital Signs Vital Signs Date Time Temp Pulse Resp B/P (MAP) Pulse Ox O2 Delivery O2 Flow Rate FiO2 05/04/24 12:20 97.8 81 20 147/85 (105) 99 97.8 05/04/24 08:15 Room Air* 0 21 Physical Exam General Appearance: Cooperative. Well developed. Well nourished. NAD Head Exam: Normal inspection Neck Exam: Normal inspection. Non-tender. Normal alignment Pulmonary/Respiratory: Chest non-tender. Clear bilateral breath sounds Cardiovascular/Chest: Regular rate and rhythm. No murmurs. No JVD. Peripheral Pulses: 2+ Radial (R). 2+ Radial (L). 2+ Pedal (R). 2+ Pedal (L) Abdominal Exam: Normal bowel sounds. Soft. Nontender. No hepatospenomegaly. No masses Ankle Exam: Negative ankle edema Lower extremities: Negative lower extremity edema Neuro/Mental Status: A&O x4. Coherent Thoughts/Psych: Normal thought pattern. Appropriate mood and affect. Good judgement and insight Appearance: In no acute distress Skin Exam: Normal inspection. Normal color. Warm. Dry Labs/Diagnostic Data Labs Test 05/04/24 13:20 05/04/24 10:46 05/04/24 09:12 05/03/24 14:20 Range/Units White Blood Count 20.2 #H 4.4-10.8 10^3/uL Red Blood Count 5.51 4.5-5.90 10^6/uL Hemoglobin 17.3 13.5-17.5 g/dL Hematocrit 51.2 41.0-53.0 % Mean Corpuscular Volume 93.0 80.0-100.0 fL Mean Corpuscular Hemoglobin 31.4 28.0-32.0 pg Mean Corpuscular Hemoglobin Concent 33.8 32.0-36.0 g/dL Red Cell Distribution Width 13.7 11.8-14.3 % Platelet Count 268 140-450 10^3/uL Mean Platelet Volume 9.5 6.9-10.8 fL Neutrophils (%) (Auto) 82.1 H 37.0-80.0 % Lymphocytes (%) (Auto) 10.7 10.0-50.0 % Monocytes (%) (Auto) 7.0 0.0-12.0 % Eosinophils (%) (Auto) 0.1 0.0-7.0 % Basophils (%) (Auto) 0.1 0.0-2.0 % Neutrophils # (Auto) 16.5 H 1.6-8.6 10 ^3/uL Lymphocytes # (Auto) 2.2 0.4-5.4 10 ^3/uL Monocytes # (Auto) 1.4 H 0-1.3 10 ^3/uL Eosinophils # (Auto) 0 0-0.8 10 ^3/uL Basophils # (Auto) 0 0-0.2 10 ^3/uL Nucleated Red Blood Cells 0.3 % Sodium Level 132 L 136-145 mmol/L Potassium Level 3.8 3.5-5.1 mmol/L Chloride Level 98 98-107 mmol/L Carbon Dioxide Level 22 20-31 mmol/L Anion Gap 12 5-15 Blood Urea Nitrogen 15 9-23 mg/dL Creatinine 0.93 0.700-1.30 mg/dL Glomerular Filtration Rate Calc 98 >90 mL/min BUN/Creatinine Ratio 16.1 10.0-20.0 Serum Glucose 200 H 74-106 mg/dL Calcium Level 9.9 8.7-10.4 mg/dL Total Bilirubin 0.7 0.2-1.0 mg/dL Aspartate Amino Transferase (AST) 12 L 13-40 U/L Alanine Aminotransferase (ALT) 26 7-40 U/L Alkaline Phosphatase 51 46-116 U/L Total Protein 7.7 5.7-8.2 g/dL Albumin 4.6 3.2-4.8 g/dL POC Glucose 191 H 70-106 mg/dl Hemoglobin A1c 7.1 H <5.7 % A1C Phosphorus Level 3.0 2.4-5.1 mg/dL Magnesium Level 2.2 1.6-2.6 mg/dL Beta-Hydroxybutyric Acid 1.523 H < 0.4 mmol/L Urine Color Light-yellow Yellow Urine Clarity Clear Clear Urine pH 5.5 5.0-9.0 Urine Specific Virgil 1.030 1.001-1.035 Urine Protein Trace H Negative Urine Ketones 4+ H Negative Urine Blood Negative Negative /uL Urine Nitrite Negative Negative Urine Bilirubin Negative Negative Urine Urobilinogen Normal Negative mg/dL Urine Leukocyte Esterase Negative Negative /uL Urine RBC None seen 0 - 3 /hpf Urine Microscopic WBC < 1 0-3 /HPF Urine Squamous Epithelial Cells Few <5 /hpf Urine Bacteria None seen None Seen /hpf Urine Glucose 4+ H Normal mg/dL Urine Opiates Screen Neg NEGATIVE Urine Fentanyl Screen Neg NEGATIVE Urine Barbiturates Screen Neg NEGATIVE Urine Phencyclidine Screen Neg NEGATIVE Urine Amphetamines Screen Neg NEGATIVE Urine Benzodiazepines Screen Neg NEGATIVE Urine Cocaine Screen Neg NEGATIVE Urine Cannabinoids Screen Pos NEGATIVE Test 05/03/24 13:50 05/03/24 13:44 05/03/24 11:36 Range/Units Blood Gas Specimen Type Arterial Blood Gas Sample Site Right radial Blood Gas Patient Temperature 37.0 Arterial Blood Date Drawn [id number] Arterial Blood pH 7.335 L 7.350-7.450 Arterial Blood Partial Pressure CO2 36.1 35.0-48.0 mmHg Arterial Blood Partial Pressure O2 118.9 H 83.0-108.0 mmHg Arterial Blood HCO3 18.8 L 21.0-28.0 mmol/L Arterial Blood Oxygen Saturation 98.2 H 94.0-98.0 % Arterial Blood Base Excess -6.0 L -2.0-3.0 mmol/L Arterial Blood Oxyhemoglobin 97.0 94.0-98.0 % Arterial Blood Carboxyhemoglobin 0.3 L 0.5-1.5 % Arterial Blood Methemoglobin 0.9 0.0-1.5 % Ayden Test Yes Blood Gas Total Hemoglobin 19.10 *H 13.5-17.5 g/dL Blood Gas Liter Flow 3.00 Blood Gas Modality Nasal cannula FiO2 % 32.0 Blood Gas Critical Value Read Back Yes Blood Gas Notified Whom kayla Bryant np Blood Gas Notified Time [id number] Blood Gas Notified By Coloring Machine Operator dedra garcia Serum Osmolality 303 H 278-298 mOsm/kg Plasma/Serum Blood Alcohol < 3.0 <10 mg/dL Lipase 45 12-53 U/L Assessment Epigastric pain with intractable nausea and vomiting. ? Acute gastroparesis ? Nausea and vomiting as side effect of mounjaro Cholelithiasis without acute cholecystitis colon Diverticulosis Dehydration Leukocytosis Uncontrolled diabetes Cannabinoid use Morbid obesity Plan/recommendation Dr Blackburn -given underlying uncontrolled diabetes and mounjaro with cannabinoid use, likely nausea and vomiting related to gastroparesis with side effect of Mounjaro. We will stand by for any acute GI intervention if symptoms persist. -continue with IV Protonix 40 mg daily -metoclopramide 5 mg IV Q eight -controlled diabetes, currently on insulin. Patient takes Jardiance and Mounjaro for diabetes. -clear liquid diet -IV hydration : Normal saline 100 mL/hour currently going. -pending stool studies including WBC, occult blood, stool culture. -we will continue to monitor this patient. Plan discussed with: Patient, Other (RN) KIP ADAM RESIDENT May 04, 2024 14:44
[2024-05-04] MEDS: PANTOPRAZOLE 40 MG/10 ML VIAL INJ IV ONE (17:39)
[2024-05-04] MEDS: HYDROMORPHONE HCL 1 MG/ML INJ IV PRN (18:14)
[2024-05-04] MEDS: cefTRIAXone 1GM/50ML D5W 50 ML IV SCH (18:36)
--- NOTE | 2024-05-04 20:28 | DVHPN2 ---
Progress Note Date Seen: May 04, 2024 Medical Necessity Reason Pt with a Central, PICC or Fol: No Subjective Review of Systems: CVS:Normal, RESPIRATORY:Normal, GI:Abnormal (Nausea and vomiting), :Normal Objective vital signs Vital Sign Date Time Temp Pulse Resp B/P (MAP) Pulse Ox O2 Delivery O2 Flow Rate FiO2 05/04/24 18:44 89 18 151/97 05/04/24 17:00 98.2 95 98.2 05/04/24 08:15 Room Air* 0 21 Total Intake and Output 05/03/24 05/03/24 05/04/24 15:00 23:00 07:00 Intake Total 1000 ml 800 ml Output Total 1575 ml Balance 1000 ml -1575 ml 800 ml medications Current Medications Medications Dose Ordered Sig/Tang Route Start Time Stop Time Status Last Admin Dose Admin Ondansetron HCl 4 mg Q4HP PRN IV 05/03/24 13:45 05/04/24 09:05 4 MG Metoclopramide HCl 5 mg Q8HR IV 05/03/24 14:00 05/05/24 06:01 05/04/24 13:03 5 MG Hydralazine HCl 10 mg Q6HP PRN IV 05/03/24 13:45 05/04/24 11:20 10 MG Insulin Glargine 15 units DAILY SC 05/03/24 15:30 05/04/24 10:00 15 UNITS Diagnostic Test (Pha) 1 strip ACHS 05/03/24 17:00 05/04/24 17:00 1 STRIP Insulin Human Regular HS SC 05/03/24 22:00 05/03/24 23:18 2 UNITS Insulin Human Regular AC SC 05/03/24 17:00 05/04/24 17:37 6 UNITS Dextrose 50 ml UD PRN IV 05/03/24 15:30 Nitroglycerin 0.4 mg Q5MINP PRN SL 05/03/24 15:30 Morphine Sulfate 2 mg Q30M PRN IV 05/03/24 15:30 Sodium Chloride 1,000 ml @ 100 mls/hr Q10H IV 05/04/24 12:00 05/04/24 12:59 100 MLS/HR Metronidazole 100 ml @ 100 mls/hr Q8HR IV 05/04/24 14:00 05/04/24 13:02 100 MLS/HR Hydromorphone HCl 0.5 mg Q4HPRN PRN IV 05/04/24 12:00 05/04/24 18:14 0.5 MG Pantoprazole Sodium 40 mg DAILY IV 05/05/24 10:00 Ceftriaxone Sodium 50 ml @ 100 mls/hr Q24H IV 05/04/24 18:00 05/04/24 18:36 100 MLS/HR Examination: GENERAL:Normal, LUNGS:Normal, CVS:Normal, ABDOMEN:Normal, SKIN:Normal, NEURO:Normal laboratory and microbiology Laboratory Tests 05/04/24 13:20 Test 05/04/24 13:20 Range/Units Serum Glucose 200 H 74-106 mg/dL Labs and/or images reviewed: Labs reviewed by me, Image(s) reviewed by me Problem List/Assessment/Plan Problem List/Assessment/Plan 1. Intractable nausea and vomiting likely cannabis induced hyperemesis versus adverse effects from Mounjaro Antiemetics, GI consult, IV Protonix, IV fluids, supportive care 2. Gastroparesis Antiemetics 3. Leukocytosis no sepsis or SIRS likely inflammatory Monitor 4. Cholelithiasis without acute cholecystitis Monitor 5. Dehydration IV fluids 6. Controlled type 2 diabetes (A1c 7.1) Insulin sliding scale 7. Cannabis abuse Advised to stop 8. Morbid obesity Monitor Subjective: Awake and alert Objective: Patient was admitted for intractable nausea and vomiting which is likely related to cannabis induced hyperemesis. Patient UDS was positive for cannabis. Gallbladder ultrasound showed gallstones however there was no cholecystitis. Patient does report taking Mounjaro 2.5 mg as outpatient which can very much contribute to clinical picture. Patient was started on IV fluids, and we will obtain stool culture to rule out any underlying infection. Patient does have leukocytosis with white count of 22 which is likely inflammatory from cyclic vomiting. Plan: Continue with supportive care, IV antibiotics, IV fluids, GI consult appreciated, recommending to stop moujaro as outpatient, insulin sliding scale, stool culture Plan discussed with: Patient My Orders My Orders Orders - GRACE STEVENSON Procedure Category Date Status Time * Gi Dvh Farm Adviser CONS 05/04/24 Transmitted 11:44 Gallbladder US 05/04/24 Resulted 11:44 Sodium Chloride 0.9% PHA 05/04/24 In Process 12:00 Metronidazole PHA 05/04/24 In Process 500mg/100ml (Flagyl 14:00 Hydromorphone Hcl Inj PHA 05/04/24 In Process (Dilaudid Innjecti 12:00 Clostridium Difficile SHERYL 05/04/24 Uncollected Toxin 11:54 Stool Bacterial SHERYL 05/04/24 Uncollected Culture 11:54 Ceftriaxone 1gm/50ml PHA 05/04/24 In Process D5w (Rocephin) 18:00 Date of Service: May 04, 2024 Billing Provider: HARDEEP SALINAS MD Common Visit Codes: [id number] INP/OBS CARE (MOD) GRACE STEVENSON INTERIOR DESIGN PROJECT MANAGER May 04, 2024 20:27
[2024-05-05] VITALS (8 sets, daily range): BP systolic 124–150; BP diastolic 77–102; PULSE 66–86; RESP 16–18; TEMP 97.5–98.4; O2SAT 93–99
[2024-05-05] MEDS: PANTOPRAZOLE 40 MG/10 ML VIAL INJ IV SCH (08:43)
[2024-05-05] MEDS ORDERED: cefTRIAXone 1GM/50ML D5W 50 ML IV SCH (09:00)
--- NOTE | 2024-05-05 10:43 | DVHPN2 ---
Progress Note Date Seen: May 05, 2024 Medical Necessity Reason Pt with a Central, PICC or Fol: No Subjective Review of Systems: CVS:Normal, RESPIRATORY:Normal, :Normal, NEURO:Normal Objective vital signs Vital Sign Date Time Temp Pulse Resp B/P (MAP) Pulse Ox O2 Delivery O2 Flow Rate FiO2 05/05/24 09:00 98.0 72 17 124/77 (93) 99 98.0 05/04/24 20:00 Room Air* 0 21 Total Intake and Output 05/04/24 05/04/24 05/05/24 15:00 23:00 07:00 Intake Total 100 ml 1080 ml 600 ml Output Total 825 ml 600 ml 1900 ml Balance -725 ml 480 ml -1300 ml medications Current Medications Medications Dose Ordered Sig/Tang Route Start Time Stop Time Status Last Admin Dose Admin Ondansetron HCl 4 mg Q4HP PRN IV 05/03/24 13:45 05/04/24 09:05 4 MG Hydralazine HCl 10 mg Q6HP PRN IV 05/03/24 13:45 05/04/24 11:20 10 MG Insulin Glargine 15 units DAILY SC 05/03/24 15:30 05/04/24 10:00 15 UNITS Diagnostic Test (Pha) 1 strip ACHS 05/03/24 17:00 05/05/24 06:15 1 STRIP Insulin Human Regular HS SC 05/03/24 22:00 05/04/24 22:25 3 UNITS Insulin Human Regular AC SC 05/03/24 17:00 05/05/24 06:07 2 UNITS Dextrose 50 ml UD PRN IV 05/03/24 15:30 Nitroglycerin 0.4 mg Q5MINP PRN SL 05/03/24 15:30 Morphine Sulfate 2 mg Q30M PRN IV 05/03/24 15:30 Sodium Chloride 1,000 ml @ 100 mls/hr Q10H IV 05/04/24 12:00 05/04/24 12:59 100 MLS/HR Metronidazole 100 ml @ 100 mls/hr Q8HR IV 05/04/24 14:00 05/05/24 06:14 100 MLS/HR Hydromorphone HCl 0.5 mg Q4HPRN PRN IV 05/04/24 12:00 05/05/24 06:10 0.5 MG Pantoprazole Sodium 40 mg DAILY IV 05/05/24 10:00 05/05/24 08:43 40 MG Ceftriaxone Sodium 50 ml @ 100 mls/hr Q24H IV 05/04/24 18:00 05/04/24 18:36 100 MLS/HR Examination: GENERAL:Normal, LUNGS:Normal, CVS:Normal, ABDOMEN:Normal, SKIN:Normal, NEURO:Normal laboratory and microbiology Laboratory Tests 05/04/24 13:20 Test 05/04/24 13:20 Range/Units Serum Glucose 200 H 74-106 mg/dL Labs and/or images reviewed: Labs reviewed by me, Image(s) reviewed by me Problem List/Assessment/Plan Problem List/Assessment/Plan 1. Intractable nausea and vomiting likely cannabis induced hyperemesis versus adverse effects from Mounjaro Antiemetics, GI consult, IV Protonix, IV fluids, supportive care 2. Gastroparesis Antiemetics 3. Leukocytosis no sepsis or SIRS likely inflammatory Monitor 4. Cholelithiasis without acute cholecystitis Monitor 5. Dehydration IV fluids 6. Controlled type 2 diabetes (A1c 7.1) Insulin sliding scale 7. Cannabis abuse Advised to stop 8. Morbid obesity 9. hyponatremia monitor Monitor Subjective: Awake and alert Objective: Patient was admitted for intractable nausea and vomiting which is likely related to cannabis induced hyperemesis and side effects from Mounjaro. Patient UDS was positive for cannabis. Gallbladder ultrasound showed gallstones however there was no cholecystitis. Patient does report taking Mounjaro 2.5 mg as outpatient which can very much contribute to clinical picture. Patient was started on IV fluids, and we will obtain stool culture to rule out any underlying infection. Today patient reports feeling significantly better, we will discharge tomorrow if stable Plan: Continue with supportive care, IV antibiotics, IV fluids, GI consult appreciated, recommending to stop moujaro as outpatient, insulin sliding scale, stool culture Plan discussed with: Patient My Orders My Orders Orders - GRACE STEVENSON Procedure Category Date Status Time * Gi Dvh Principal Architectural Firm CONS 05/04/24 Transmitted 11:44 Gallbladder US 05/04/24 Resulted 11:44 Sodium Chloride 0.9% PHA 05/04/24 In Process 12:00 Metronidazole PHA 05/04/24 In Process 500mg/100ml (Flagyl 14:00 Hydromorphone Hcl Inj PHA 05/04/24 In Process (Dilaudid Innjecti 12:00 Clostridium Difficile SHERYL 05/04/24 Uncollected Toxin 11:54 Stool Bacterial SHERYL 05/04/24 Uncollected Culture 11:54 Ceftriaxone 1gm/50ml PHA 05/04/24 In Process D5w (Rocephin) 18:00 Date of Service: May 05, 2024 Billing Provider: HARDEEP SALINAS MD Common Visit Codes: [id number] INP/OBS CARE (MOD) GRACE STEVENSON BACK TUFTER May 05, 2024 10:43
--- NOTE | 2024-05-05 13:59 | DVHPN2 ---
Progress Note Date Seen: May 05, 2024 Resident Creating Document: KAUSHIK PATEL RESIDENT Medical Necessity Reason Pt with a Central, PICC or Fol: No Subjective Review of Systems The patient was seen and examined on the bedside. He is alert oriented x3. Complaining of mild abdominal pain, nausea and 2 episodes of vomiting since last night. Gallbladder ultrasound revealed cholelithiasis without sonographic evidence of acute cholecystitis, hepatic steatosis. Recommended Upper GI endoscopy if symptoms persist. Objective vital signs Vital Sign Date Time Temp Pulse Resp B/P (MAP) Pulse Ox O2 Delivery O2 Flow Rate FiO2 05/05/24 13:00 97.5 86 17 143/87 (105) 93 97.5 05/05/24 08:00 Room Air* 0 21 Total Intake and Output 05/04/24 05/04/24 05/05/24 15:00 23:00 07:00 Intake Total 100 ml 1080 ml 600 ml Output Total 825 ml 600 ml 1900 ml Balance -725 ml 480 ml -1300 ml medications Current Medications Medications Dose Ordered Sig/Tang Route Start Time Stop Time Status Last Admin Dose Admin Ondansetron HCl 4 mg Q4HP PRN IV 05/03/24 13:45 05/04/24 09:05 4 MG Hydralazine HCl 10 mg Q6HP PRN IV 05/03/24 13:45 05/04/24 11:20 10 MG Insulin Glargine 15 units DAILY SC 05/03/24 15:30 05/05/24 11:25 15 UNITS Diagnostic Test (Pha) 1 strip ACHS 05/03/24 17:00 05/05/24 11:19 1 STRIP Insulin Human Regular HS SC 05/03/24 22:00 05/04/24 22:25 3 UNITS Insulin Human Regular AC SC 05/03/24 17:00 05/05/24 11:25 3 UNITS Dextrose 50 ml UD PRN IV 05/03/24 15:30 Nitroglycerin 0.4 mg Q5MINP PRN SL 05/03/24 15:30 Morphine Sulfate 2 mg Q30M PRN IV 05/03/24 15:30 Sodium Chloride 1,000 ml @ 100 mls/hr Q10H IV 05/04/24 12:00 05/04/24 12:59 100 MLS/HR Metronidazole 100 ml @ 100 mls/hr Q8HR IV 05/04/24 14:00 05/05/24 13:40 100 MLS/HR Hydromorphone HCl 0.5 mg Q4HPRN PRN IV 05/04/24 12:00 05/05/24 11:05 0.5 MG Pantoprazole Sodium 40 mg DAILY IV 05/05/24 10:00 05/05/24 08:43 40 MG Ceftriaxone Sodium 50 ml @ 100 mls/hr Q24H IV 05/04/24 18:00 05/04/24 18:36 100 MLS/HR Examination Physical examination: General Appearance: Alert, Oriented X3, Cooperative, No acute distress HEENT: Atraumatic, PERRLA, EOMI, Mucous membrane moist/pink Respiratory: Clear to auscultation, Normal air movement Cardiovascular: Regular rate, Normal S1, Normal S2, No murmurs, no chest wall tenderness Abdominal: Normal bowel sounds, Soft, No tenderness, No hepatospenomegaly, No masses Extremities: No clubbing, No cyanosis, No edema, Normal pulses, No tenderness/swelling Skin: No rashes, No breakdown, No significant lesion Neuro: Normal gait, Normal speech, Strength at 5/5 X4 ext, Normal tone, Sensation intact, grossly intact cranial nerves. Psych/Mental Status: Mental status NL, Mood NL laboratory and microbiology Laboratory Tests 05/04/24 13:20 Test 05/04/24 13:20 Range/Units Serum Glucose 200 H 74-106 mg/dL Labs and/or images reviewed: Labs reviewed by me, Image(s) reviewed by me Problem List/Assessment/Plan Problem List/Assessment/Plan Assessment: Epigastric pain with intractable nausea and vomiting. ? Acute gastroparesis ? Nausea and vomiting as side effect of mounjaro Cholelithiasis without acute cholecystitis colon Diverticulosis Dehydration Leukocytosis Uncontrolled diabetes Normal anion gap ketoacidosis Cannabinoid use Morbid obesity Plan/recommendation -given underlying uncontrolled diabetes and mounjaro with cannabinoid use, likely nausea and vomiting related to gastroparesis with side effect of Mounjaro. Recommended possible EGD if symptom persists. -metoclopramide 5 mg IV Q 8hr -controlled diabetes, currently on insulin. Patient takes Jardiance and Mounjaro for diabetes. -clear liquid diet -IV hydration : Normal saline 100 mL/hour -pending stool studies including WBC, occult blood, stool culture. -we will continue to monitor this patient. Plan discussed with Dr. Blackburn Plan discussed with: Patient, Other KAUSHIK PATEL RESIDENT May 05, 2024 13:59
[2024-05-05 14:08] LABS: Basophils # (auto) 0.1 10 ^3/uL (0-0.2); Basophils % (auto) 0.5 % (0.0-2.0); Eosinophils # (auto) 0.1 10 ^3/uL (0-0.8); Eosinophils % (auto) 1.3 % (0.0-7.0); Hematocrit 49.4 % (41.0-53.0); Hemoglobin 16.9 g/dL (13.5-17.5); Lymphocytes # (auto) 2.2 10 ^3/uL (0.4-5.4); Lymphocytes % (auto) 20.5 % (10.0-50.0); Mean Corpuscular Hemoglobin 31.5 pg (28.0-32.0); Mean Corpuscular Hgb Conc. 34.2 g/dL (32.0-36.0); Monocytes % (auto) 9.3 % (0.0-12.0); Neutrophils # (auto) 7.4 10 ^3/uL (1.6-8.6); Neutrophils % (auto) 68.4 % (37.0-80.0); Nucleated Red Blood Cells % 0.2 %; Platelet Count (auto) 222 10^3/uL (140-450); Red Blood Cells 5.36 10^6/uL (4.5-5.90); Red Cell Distribution Width 13.8 % (11.8-14.3); White Blood Cell 10.8 10^3/uL (4.4-10.8)
[2024-05-05 14:17] LABS: Chloride 101 mmol/L (98-107); Potassium 3.6 mmol/L (3.5-5.1)
[2024-05-05 14:18] LABS: Anion Gap 9 (5-15); Calcium 9.4 mg/dL (8.7-10.4); Carbon Dioxide 24 mmol/L (20-31)
[2024-05-05 14:23] LABS: BUN/Creatinine Ratio 11.8 (10.0-20.0); Blood Urea Nitrogen 11 mg/dL (9-23)
[2024-05-05 14:39] LABS: Glucose 223 mg/dL (74-106); Sodium 134 mmol/L (136-145)
[2024-05-06 01:00] VITALS: BP 136/84; PULSE 75; RESP 15; TEMP 98.1; O2SAT 94
[2024-05-06 05:00] VITALS: BP 141/89; PULSE 68; RESP 18; TEMP 98; O2SAT 95
[2024-05-06 08:00] VITALS: PULSE 70; RESP 18
[2024-05-06 09:00] VITALS: BP 147/87; PULSE 70; RESP 18; TEMP 98; O2SAT 91
[2024-05-06] MEDS ORDERED: METR-344 PO (10:50)
[2024-05-06] MEDS ORDERED: ACE650RS PR (10:51)
--- NOTE | 2024-05-06 10:51 | DVHHP2 ---
Review of Systems Allergies: Coded Allergies: Ciprofloxacin (Verified Allergy, Unknown, 07/10/21) Medications Current Medications Medications Dose Ordered Sig/Tang Route Start Time Stop Time Status Last Admin Dose Admin Ondansetron HCl 4 mg Q4HP PRN IV 05/03/24 13:45 05/04/24 09:05 4 MG Hydralazine HCl 10 mg Q6HP PRN IV 05/03/24 13:45 05/04/24 11:20 10 MG Insulin Glargine 15 units DAILY SC 05/03/24 15:30 05/06/24 10:04 15 UNITS Diagnostic Test (Pha) 1 strip ACHS 05/03/24 17:00 05/06/24 06:31 1 STRIP Insulin Human Regular HS SC 05/03/24 22:00 05/05/24 21:50 3 UNITS Insulin Human Regular AC SC 05/03/24 17:00 05/06/24 06:28 2 UNITS Dextrose 50 ml UD PRN IV 05/03/24 15:30 Nitroglycerin 0.4 mg Q5MINP PRN SL 05/03/24 15:30 Morphine Sulfate 2 mg Q30M PRN IV 05/03/24 15:30 Sodium Chloride 1,000 ml @ 100 mls/hr Q10H IV 05/04/24 12:00 05/05/24 16:29 100 MLS/HR Metronidazole 100 ml @ 100 mls/hr Q8HR IV 05/04/24 14:00 05/06/24 06:31 100 MLS/HR Hydromorphone HCl 0.5 mg Q4HPRN PRN IV 05/04/24 12:00 05/06/24 01:35 0.5 MG Pantoprazole Sodium 40 mg DAILY IV 05/05/24 10:00 05/06/24 09:51 40 MG Ceftriaxone Sodium 50 ml @ 100 mls/hr Q24H IV 05/04/24 18:00 05/05/24 17:33 100 MLS/HR Exam Vital Signs Vital Signs Date Time Temp Pulse Resp B/P (MAP) Pulse Ox O2 Delivery O2 Flow Rate FiO2 05/06/24 09:00 98.0 70 18 147/87 (107) 91 98.0 05/06/24 08:00 Room Air* 0 21 Labs/Xrays Labs Test 05/06/24 09:42 05/05/24 15:16 05/05/24 13:50 05/04/24 13:20 Range/Units POC Glucose 190 H 70-106 mg/dl Lactic Acid Level 2.0 0.4-2.0 mmol/L White Blood Count 10.8 # 4.4-10.8 10^3/uL Red Blood Count 5.36 4.5-5.90 10^6/uL Hemoglobin 16.9 13.5-17.5 g/dL Hematocrit 49.4 41.0-53.0 % Mean Corpuscular Volume 92.0 80.0-100.0 fL Mean Corpuscular Hemoglobin 31.5 28.0-32.0 pg Mean Corpuscular Hemoglobin Concent 34.2 32.0-36.0 g/dL Red Cell Distribution Width 13.8 11.8-14.3 % Platelet Count 222 140-450 10^3/uL Mean Platelet Volume 9.0 6.9-10.8 fL Neutrophils (%) (Auto) 68.4 37.0-80.0 % Lymphocytes (%) (Auto) 20.5 10.0-50.0 % Monocytes (%) (Auto) 9.3 0.0-12.0 % Eosinophils (%) (Auto) 1.3 0.0-7.0 % Basophils (%) (Auto) 0.5 0.0-2.0 % Neutrophils # (Auto) 7.4 1.6-8.6 10 ^3/uL Lymphocytes # (Auto) 2.2 0.4-5.4 10 ^3/uL Monocytes # (Auto) 1.0 0-1.3 10 ^3/uL Eosinophils # (Auto) 0.1 0-0.8 10 ^3/uL Basophils # (Auto) 0.1 0-0.2 10 ^3/uL Nucleated Red Blood Cells 0.2 % Sodium Level 134 L 136-145 mmol/L Potassium Level 3.6 3.5-5.1 mmol/L Chloride Level 101 98-107 mmol/L Carbon Dioxide Level 24 20-31 mmol/L Anion Gap 9 5-15 Blood Urea Nitrogen 11 9-23 mg/dL Creatinine 0.93 0.700-1.30 mg/dL Glomerular Filtration Rate Calc 98 >90 mL/min BUN/Creatinine Ratio 11.8 10.0-20.0 Serum Glucose 223 H 74-106 mg/dL Calcium Level 9.4 8.7-10.4 mg/dL B-Type Natriuretic Peptide 13.15 0-100 pg/mL Total Bilirubin 0.7 0.2-1.0 mg/dL Aspartate Amino Transferase (AST) 12 L 13-40 U/L Alanine Aminotransferase (ALT) 26 7-40 U/L Alkaline Phosphatase 51 46-116 U/L Total Protein 7.7 5.7-8.2 g/dL Albumin 4.6 3.2-4.8 g/dL Test 05/04/24 09:12 05/03/24 14:20 05/03/24 13:50 05/03/24 13:44 Range/Units Hemoglobin A1c 7.1 H <5.7 % A1C Phosphorus Level 3.0 2.4-5.1 mg/dL Magnesium Level 2.2 1.6-2.6 mg/dL Beta-Hydroxybutyric Acid 1.523 H < 0.4 mmol/L Urine Color Light-yellow Yellow Urine Clarity Clear Clear Urine pH 5.5 5.0-9.0 Urine Specific [place] 1.030 1.001-1.035 Urine Protein Trace H Negative Urine Ketones 4+ H Negative Urine Blood Negative Negative /uL Urine Nitrite Negative Negative Urine Bilirubin Negative Negative Urine Urobilinogen Normal Negative mg/dL Urine Leukocyte Esterase Negative Negative /uL Urine RBC None seen 0 - 3 /hpf Urine Microscopic WBC < 1 0-3 /HPF Urine Squamous Epithelial Cells Few <5 /hpf Urine Bacteria None seen None Seen /hpf Urine Glucose 4+ H Normal mg/dL Urine Opiates Screen Neg NEGATIVE Urine Fentanyl Screen Neg NEGATIVE Urine Barbiturates Screen Neg NEGATIVE Urine Phencyclidine Screen Neg NEGATIVE Urine Amphetamines Screen Neg NEGATIVE Urine Benzodiazepines Screen Neg NEGATIVE Urine Cocaine Screen Neg NEGATIVE Urine Cannabinoids Screen Pos NEGATIVE Blood Gas Specimen Type Arterial Blood Gas Sample Site Right radial Blood Gas Patient Temperature 37.0 Arterial Blood Date Drawn [id number] Arterial Blood pH 7.335 L 7.350-7.450 Arterial Blood Partial Pressure CO2 36.1 35.0-48.0 mmHg Arterial Blood Partial Pressure O2 118.9 H 83.0-108.0 mmHg Arterial Blood HCO3 18.8 L 21.0-28.0 mmol/L Arterial Blood Oxygen Saturation 98.2 H 94.0-98.0 % Arterial Blood Base Excess -6.0 L -2.0-3.0 mmol/L Arterial Blood Oxyhemoglobin 97.0 94.0-98.0 % Arterial Blood Carboxyhemoglobin 0.3 L 0.5-1.5 % Arterial Blood Methemoglobin 0.9 0.0-1.5 % Ayden Test Yes Blood Gas Total Hemoglobin 19.10 *H 13.5-17.5 g/dL Blood Gas Liter Flow 3.00 Blood Gas Modality Nasal cannula FiO2 % 32.0 Blood Gas Critical Value Read Back Yes Blood Gas Notified Whom kayla Bryant np Blood Gas Notified Time [id number] Blood Gas Notified By Director Specialty dedra garcia Serum Osmolality 303 H 278-298 mOsm/kg Plasma/Serum Blood Alcohol < 3.0 <10 mg/dL Test 05/03/24 11:36 Range/Units Lipase 45 12-53 U/L Assessment/Plan My Orders Orders - GRACE STEVENSON Procedure Category Date Status Time Discharge DISCHARGE 05/06/24 Transmitted 10:46 GRACE STEVENSON May 06, 2024 10:51
--- NOTE | 2024-05-06 10:52 | DVHDS2 ---
Discharge Summary Date of Admission May 03, 2024 at 15:18 Date of Discharge: May 06, 2024 Admitting Diagnosis Intractable nausea and vomiting Labs/Diagnostic Data: Laboratory Results Test 05/06/24 09:42 05/05/24 15:16 05/05/24 13:50 05/04/24 13:20 POC Glucose 190 mg/dl (70-106) Lactic Acid Level 2.0 mmol/L (0.4-2.0) White Blood Count 10.8 10^3/uL (4.4-10.8) Red Blood Count 5.36 10^6/uL (4.5-5.90) Hemoglobin 16.9 g/dL (13.5-17.5) Hematocrit 49.4 % (41.0-53.0) Mean Corpuscular Volume 92.0 fL (80.0-100.0) Mean Corpuscular Hemoglobin 31.5 pg (28.0-32.0) Mean Corpuscular Hemoglobin Concent 34.2 g/dL (32.0-36.0) Red Cell Distribution Width 13.8 % (11.8-14.3) Platelet Count 222 10^3/uL (140-450) Mean Platelet Volume 9.0 fL (6.9-10.8) Neutrophils (%) (Auto) 68.4 % (37.0-80.0) Lymphocytes (%) (Auto) 20.5 % (10.0-50.0) Monocytes (%) (Auto) 9.3 % (0.0-12.0) Eosinophils (%) (Auto) 1.3 % (0.0-7.0) Basophils (%) (Auto) 0.5 % (0.0-2.0) Neutrophils # (Auto) 7.4 10 ^3/uL (1.6-8.6) Lymphocytes # (Auto) 2.2 10 ^3/uL (0.4-5.4) Monocytes # (Auto) 1.0 10 ^3/uL (0-1.3) Eosinophils # (Auto) 0.1 10 ^3/uL (0-0.8) Basophils # (Auto) 0.1 10 ^3/uL (0-0.2) Nucleated Red Blood Cells 0.2 % Sodium Level 134 mmol/L (136-145) Potassium Level 3.6 mmol/L (3.5-5.1) Chloride Level 101 mmol/L (98-107) Carbon Dioxide Level 24 mmol/L (20-31) Anion Gap 9 (5-15) Blood Urea Nitrogen 11 mg/dL (9-23) Creatinine 0.93 mg/dL (0.700-1.30) Glomerular Filtration Rate Calc 98 mL/min (>90) BUN/Creatinine Ratio 11.8 (10.0-20.0) Serum Glucose 223 mg/dL (74-106) Calcium Level 9.4 mg/dL (8.7-10.4) B-Type Natriuretic Peptide 13.15 pg/mL (0-100) Total Bilirubin 0.7 mg/dL (0.2-1.0) Aspartate Amino Transferase (AST) 12 U/L (13-40) Alanine Aminotransferase (ALT) 26 U/L (7-40) Alkaline Phosphatase 51 U/L (46-116) Total Protein 7.7 g/dL (5.7-8.2) Albumin 4.6 g/dL (3.2-4.8) Test 05/04/24 09:12 05/03/24 14:20 05/03/24 13:50 05/03/24 13:44 Hemoglobin A1c 7.1 % A1C (<5.7) Phosphorus Level 3.0 mg/dL (2.4-5.1) Magnesium Level 2.2 mg/dL (1.6-2.6) Beta-Hydroxybutyric Acid 1.523 mmol/L (< 0.4) Urine Color Light-yellow (Yellow) Urine Clarity Clear (Clear) Urine pH 5.5 (5.0-9.0) Urine Specific [place] 1.030 (1.001-1.035) Urine Protein Trace (Negative) Urine Ketones 4+ (Negative) Urine Blood Negative /uL (Negative) Urine Nitrite Negative (Negative) Urine Bilirubin Negative (Negative) Urine Urobilinogen Normal mg/dL (Negative) Urine Leukocyte Esterase Negative /uL (Negative) Urine RBC None seen /hpf (0 - 3) Urine Microscopic WBC < 1 /HPF (0-3) Urine Squamous Epithelial Cells Few /hpf (<5) Urine Bacteria None seen /hpf (None Seen) Urine Glucose 4+ mg/dL (Normal) Urine Opiates Screen Neg (NEGATIVE) Urine Fentanyl Screen Neg (NEGATIVE) Urine Barbiturates Screen Neg (NEGATIVE) Urine Phencyclidine Screen Neg (NEGATIVE) Urine Amphetamines Screen Neg (NEGATIVE) Urine Benzodiazepines Screen Neg (NEGATIVE) Urine Cocaine Screen Neg (NEGATIVE) Urine Cannabinoids Screen Pos (NEGATIVE) Blood Gas Specimen Type Arterial Blood Gas Sample Site Right radial Blood Gas Patient Temperature 37.0 Arterial Blood Date Drawn [id number] Arterial Blood pH 7.335 (7.350-7.450) Arterial Blood Partial Pressure CO2 36.1 mmHg (35.0-48.0) Arterial Blood Partial Pressure O2 118.9 mmHg (83.0-108.0) Arterial Blood HCO3 18.8 mmol/L (21.0-28.0) Arterial Blood Oxygen Saturation 98.2 % (94.0-98.0) Arterial Blood Base Excess -6.0 mmol/L (-2.0-3.0) Arterial Blood Oxyhemoglobin 97.0 % (94.0-98.0) Arterial Blood Carboxyhemoglobin 0.3 % (0.5-1.5) Arterial Blood Methemoglobin 0.9 % (0.0-1.5) Ayden Test Yes Blood Gas Total Hemoglobin 19.10 g/dL (13.5-17.5) Blood Gas Liter Flow 3.00 Blood Gas Modality Nasal cannula FiO2 % 32.0 Blood Gas Critical Value Read Back Yes Blood Gas Notified Whom kayla Bryant np Blood Gas Notified Time [id number] Blood Gas Notified By Instructional Services Specialist dedra garcia Serum Osmolality 303 mOsm/kg (278-298) Plasma/Serum Blood Alcohol < 3.0 mg/dL (<10) Test 05/03/24 11:36 Lipase 45 U/L (12-53) Other Laboratory Tests 05/05/24 13:50 Brief Hx & Hospital Course: Patient was admitted for intractable nausea and vomiting which is likely related to a combination of cannabis induced hyperemesis and side effects from jaw. UDS was found to be positive for cannabis. Gallbladder ultrasound showed gallstones however there was no acute cholecystitis. Patient reportedly takes Mounjaro 2.5 mg which could contribute to his severe nausea. During hospital stay patient was given IV fluids IV antibiotics and reported significant relief and abdominal pain and intractable nausea and vomiting. Patient was seen by GI and opted to do endoscopy if symptoms persisted however symptoms did resolve. Patient was advised to follow up with PCP within one week and outpatient GI within two weeks. Patient did verbalize understanding. Patient was sent home on metronidazole 500 b.i.d. x2 weeks for acute bacterial gastroenteritis. Condition at Discharge: Fair Final Diagnosis/Problems List 1. Intractable nausea and vomiting likely cannabis induced hyperemesis versus adverse effects from Mounjaro 2. Gastroparesis 3. Leukocytosis no sepsis or SIRS likely inflammatory 4. Cholelithiasis without acute cholecystitis 5. Dehydration 6. Controlled type 2 diabetes (A1c 7.1) cannabis abuse Acute abdominal pain due to acute bacterial gastro enteritis 8. Morbid obesity 9. hyponatremia Discharge Disposition: Home Discharge Instruct/Medications Diet: Regular Activity: No Restrictions, As Tolerated Follow Up/Referral: follow up with PCP within 1 week follow up with gastroenterology within 2 weeks Discharge Statement: "Patient was advised to return to the ER or call 911 if any headaches, dizziness, shortness of breath, chest pain, abdominal pain, bleeding, fevers, or worsening of medical condition. Patient was counseled about treatment plan, medications, possible side effects, patientverbalized understanding. All questions were answered to the best of my ability. This discharge took greater then 30 minutes in planning, reviewing documentation, counseling the patient, and discussing with other team members." ASSESSMENT ASSESSMENT Assessment 1. Intractable nausea and vomiting likely cannabis induced hyperemesis versus adverse effects from Mounjaro 2. Gastroparesis 3. Leukocytosis no sepsis or SIRS likely inflammatory 4. Cholelithiasis without acute cholecystitis 5. Dehydration 6. Controlled type 2 diabetes (A1c 7.1) cannabis abuse acute bacterial gastro enteritis 8. Morbid obesity 9. hyponatremia GRACE STEVENSON [facility] May 06, 2024 10:52
--- NOTE | 2024-05-06 11:12 | DVHPN2 ---
Progress Note Date Seen: May 06, 2024 Resident Creating Document: KIP ADAM RESIDENT Medical Necessity Reason Pt with a Central, PICC or Fol: No Subjective Review of Systems Patient is seen and examined at bedside. No new complaints. No nausea, vomiting. Mild epigastric discomfort. No diarrhea. Objective vital signs Vital Sign Date Time Temp Pulse Resp B/P (MAP) Pulse Ox O2 Delivery O2 Flow Rate FiO2 05/06/24 09:00 98.0 70 18 147/87 (107) 91 98.0 05/06/24 08:00 Room Air* 0 21 Total Intake and Output 05/05/24 05/05/24 05/06/24 15:00 23:00 07:00 Intake Total 1200 ml 1350 ml 1890 ml Output Total 2000 ml 1000 ml Balance 1200 ml -650 ml 890 ml medications Current Medications Medications Dose Ordered Sig/Tang Route Start Time Stop Time Status Last Admin Dose Admin Ondansetron HCl 4 mg Q4HP PRN IV 05/03/24 13:45 05/04/24 09:05 4 MG Hydralazine HCl 10 mg Q6HP PRN IV 05/03/24 13:45 05/04/24 11:20 10 MG Insulin Glargine 15 units DAILY SC 05/03/24 15:30 05/06/24 10:04 15 UNITS Diagnostic Test (Pha) 1 strip ACHS 05/03/24 17:00 05/06/24 06:31 1 STRIP Insulin Human Regular HS SC 05/03/24 22:00 05/05/24 21:50 3 UNITS Insulin Human Regular AC SC 05/03/24 17:00 05/06/24 06:28 2 UNITS Dextrose 50 ml UD PRN IV 05/03/24 15:30 Nitroglycerin 0.4 mg Q5MINP PRN SL 05/03/24 15:30 Morphine Sulfate 2 mg Q30M PRN IV 05/03/24 15:30 Sodium Chloride 1,000 ml @ 100 mls/hr Q10H IV 05/04/24 12:00 05/05/24 16:29 100 MLS/HR Metronidazole 100 ml @ 100 mls/hr Q8HR IV 05/04/24 14:00 05/06/24 06:31 100 MLS/HR Hydromorphone HCl 0.5 mg Q4HPRN PRN IV 05/04/24 12:00 05/06/24 01:35 0.5 MG Pantoprazole Sodium 40 mg DAILY IV 05/05/24 10:00 05/06/24 09:51 40 MG Ceftriaxone Sodium 50 ml @ 100 mls/hr Q24H IV 05/04/24 18:00 05/05/24 17:33 100 MLS/HR Examination General Appearance: Alert, Oriented X3, Cooperative, No acute distress HEENT: Atraumatic, PERRLA, EOMI, Mucous membrane moist/pink Respiratory: Clear to auscultation, Normal air movement Cardiovascular: Regular rate, Normal S1, Normal S2, No murmurs, no chest wall tenderness Abdominal: Normal bowel sounds, Soft, No tenderness, No hepatospenomegaly, No masses Extremities: No clubbing, No cyanosis, No edema, Normal pulses, No tenderness/swelling Skin: No rashes, No breakdown, No significant lesion Neuro: Normal gait, Normal speech, Strength at 5/5 X4 ext, Normal tone, Sensation intact, grossly intact cranial nerves. Psych/Mental Status: Mental status NL, Mood NL laboratory and microbiology Laboratory Tests 05/05/24 13:50 Test 05/05/24 13:50 Range/Units Serum Glucose 223 H 74-106 mg/dL Problem List/Assessment/Plan Problem List/Assessment/Plan Epigastric pain with intractable nausea and vomiting. ? Acute gastroparesis ? Nausea and vomiting as side effect of mounjaro Cholelithiasis without acute cholecystitis colon Diverticulosis Dehydration Leukocytosis Uncontrolled diabetes Cannabinoid use Morbid obesity Plan/recommendation Dr Blackburn -given underlying uncontrolled diabetes and mounjaro with cannabinoid use, likely nausea and vomiting related to gastroparesis with side effect of Mounjaro. The patient will times follow up with gastro group in outpatient setting. -continue with IV Protonix 40 mg daily -metoclopramide 5 mg IV Q eight -controlled diabetes, currently on insulin. Patient takes Jardiance and Mounjaro for diabetes. -clear liquid diet -IV hydration : Normal saline 100 mL/hour currently going. -pending stool studies including WBC, occult blood, stool culture. -we will continue to monitor this patient. Plan discussed with: Patient, Other (RN) KIP ADAM RESIDENT May 06, 2024 11:12
[2024-05-06 13:00] VITALS: BP_SYST 159; BP_SYST 161; BP_DIAS 100; BP_DIAS 93; PULSE 70; PULSE 78; RESP 17; RESP 18; TEMP 36.7; O2SAT 95
== END 2024-05-06 13:30 | disposition home or self-care (01) | DRG 371 ==
LOC: ER 10:09 → TELE-CENTR 15:18 → OVERFLOW 17:09 → TELE-EAST 22:27
PROVIDERS: ADMIT Nurse Practitioner; ATTEND Nurse Practitioner
DX: A04.9 Bacterial intestinal infection, unspecified (principal); E11.10 Type 2 diabetes mellitus with ketoacidosis without coma; Z68.41 Body mass index [BMI] 40.0-44.9, adult; E87.1 Hypo-osmolality and hyponatremia; E87.29 Other acidosis; E10.43 Type 1 diabetes mellitus with diabetic autonomic (poly)neuropathy; K80.20 Calculus of gallbladder without cholecystitis without obstruction; K31.84 Gastroparesis; K57.30 Diverticulosis of large intestine without perforation or abscess without bleeding; E86.0 Dehydration; T50.995A Adverse effect of other drugs, medicaments and biological substances, initial encounter; F12.10 Cannabis abuse, uncomplicated; E66.01 Morbid (severe) obesity due to excess calories; G47.30 Sleep apnea, unspecified; F41.9 Anxiety disorder, unspecified; K21.9 Gastro-esophageal reflux disease without esophagitis; Z88.1 Allergy status to other antibiotic agents; Z79.899 Other long term (current) drug therapy; Z86.73 Personal history of transient ischemic attack (TIA), and cerebral infarction without residual deficits; Z79.891 Long term (current) use of opiate analgesic; Z80.3 Family history of malignant neoplasm of breast; Z79.4 Long term (current) use of insulin; Y92.89 Other specified places as the place of occurrence of the external cause
CPT/HCPCS: 36415; 71045; 74176; 76705; 80048; 80053; 80307; 80320; 81001; 82010; 82962; 83036; 83605; 83690; 83735; 83880; 83930; 84100; 85025; G0378; J1815; J2405; J2470; J3490